=== PATIENT | female | born 1985 | race Caucasian/White ===

== ENCOUNTER 2017-03-30 00:49 | Emergency (ER) | payer MEDICAID ==
[2017-03-30 01:03] VITALS: BP 136/83
[2017-03-30] MEDS ORDERED: Ketorolac 60 MG/2 ML SDV IM ONE (01:32)
[2017-03-30] MEDS ORDERED: HYDROmorphone 1 MG/ML Syringe IM ONE (01:32)
--- NOTE | 2017-03-30 01:33 | EDM.PDOC ---
ED HPI GENERAL MEDICAL PROBLEM - General Chief Complaint: Lower Extremity Injury/Pain Stated Complaint: NERVE DANAGE IN LEGS IN PAIN Time Seen by Provider: 03/30/17 00:59 Source of Information: Reports: Patient History Limitations: Reports: No Limitations - History of Present Illness INITIAL COMMENTS - FREE TEXT/NARRATIVE: 31 y/o F with hx of self-reported neurological condition yet undiagnosed that causes severe intermittent leg pain, leg numbness, and weakness in her toes. She has pain from the belly button down through her legs. Pain is currently severe. It is burning in nature. It hurts to touch the skin. She also feels like she has weakness in her toes, which she gets with these episodes. States the pain has been constant for years but is intermittently worse causing her to need to come to the ED for medication, which is the only thing that helps. She takes gabapentin and has been taking this but it hasn't helped lately. She's had severe pain x 5 days, pain is preventing sleep. States she's been to [place] multiple times and has had many tests, including MRI of the back, what sounds like a nerve biopsy, what sounds like EMG, and others. All tests have been negative so far. Bilateral Lower Leg Pain Score (Numeric/FACES): 10 - Related Data Allergies Allergy/AdvReac Type Severity Reaction Status Date / Time iodine Allergy Hives Verified 07/15/16 16:45 Penicillins Allergy Swelling Verified 07/15/16 16:45 adhesive tape Allergy Blisters Uncoded 07/15/16 16:45 Bee sting Allergy Anaphylactic Uncoded 07/15/16 16:45 Shock Home Meds: Home Meds Albuterol [Proventil Neb Soln] 3 ml INH Q4HR PRN 05/06/14 [History] Fluticasone/Salmeterol [Advair 250-50] 2 puff INH DAILY 05/06/14 [History] Venlafaxine [Effexor] 150 mg PO DAILY 01/17/15 [History] Zolpidem Tartrate [Ambien] 10 mg PO BEDTIME PRN 06/28/16 [History] Gabapentin [Neurontin] 100 mg PO BID 03/30/17 [History] Past Medical History HEENT History: Reports: Impaired Vision Respiratory History: Reports: Asthma Gastrointestinal History: Reports: None Genitourinary History: Reports: None 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 Musculoskeletal History: Reports: Other (See Below) Neurological History: Reports: Head Trauma, Neuropathy, Peripheral, Other (See Below) Other Neuro History: Meneris disease Psychiatric History: Reports: Anxiety, Depression, PTSD Oncologic (Cancer) History: Reports: Cervix - Past Surgical History HEENT Surgical History: Reports: Oral Surgery Respiratory Surgical History: Reports: None GI Surgical History: Reports: Other (See Below) Other GI Surgeries/Procedures: superior mesenteric artery syndrome Female Surgical History: Reports: D&C Neurological Surgical History: Reports: None Social & Family History - Family History Family Medical History: Noncontributory - Tobacco Use Smoking Status *Q: Current Some Day Smoker Years of Tobacco use: 16 Packs/Tins Daily: 0.5 Used Tobacco, but Quit: No Second Hand Smoke Exposure: No - Caffeine Use Caffeine Use: Reports: Coffee, Soda, Tea - Alcohol Use Days Per Week of Alcohol Use: 0 - Recreational Drug Use Recreational Drug Use: No - Living Situation & Occupation Living situation: Reports: , with Significant Other, with Family Occupation: Employed Review of Systems - Review of Systems Review Of Systems: See Below Constitutional: Reports: No Symptoms Respiratory: Denies: Cough GI/Abdominal: Denies: Abdominal Pain Neurological: Reports: Paresthesia ED EXAM, GENERAL - Physical Exam Exam: See Below Exam Limited By: No Limitations General Appearance: Alert, WD/WN, No Apparent Distress Eye Exam: Bilateral Eye: PERRL Ears: Normal External Exam Nose: Normal Inspection Throat/Mouth: Normal Inspection, Normal Voice, No Airway Compromise Head: Atraumatic, Normocephalic Neck: Normal Inspection, Supple, Non-Tender, Full Range of Motion Respiratory/Chest: No Respiratory Distress, Lungs Clear, Normal Breath Sounds, Chest Non-Tender Cardiovascular: Regular Rate, Rhythm GI/Abdominal: Soft, Non-Tender, No Distention Extremities: Normal Inspection Neurological: Alert, Oriented, Normal Cognition, No Motor/Sensory Deficits Psychiatric: Normal Affect, Normal Mood Skin Exam: Warm, Dry, Intact, Normal Color, No Rash Course - Vital Signs Last Recorded V/S: Last Vital Signs Temp 36.7 C 03/30/17 01:00 Pulse 115 H 03/30/17 01:00 Resp 16 03/30/17 01:00 BP 136/83 03/30/17 01:00 Pulse Ox 100 03/30/17 01:00 - Orders/Labs/Meds Meds: Medications Discontinued Medications Generic Name Dose Route Start Last Admin Trade Name Arlyn PRN Reason Stop Dose Admin Hydromorphone HCl 1 mg 03/30/17 01:32 Dilaudid IM 03/30/17 01:33 ONETIME ONE Ketorolac Tromethamine 60 mg 03/30/17 01:32 Toradol IM 03/30/17 01:33 ONETIME ONE - Re-Assessments/Exams Free Text/Narrative Re-Assessment/Exam: 03/30/17 01:45 I have nothing to add to diagnostic workup tonight and have very low suspicion of an emergency medical condition. Will provide a dose of IV toradol and dilaudid, encouraged patient to f/u with PCP tomorrow for further care. Departure - Departure Time of Disposition: 01:36 Disposition: Home, Self-Care 01 Clinical Impression: Leg pain, bilateral - Discharge Information Referrals: Joya Dempsey WORSHIP LEADER [Primary Care Provider] - Forms: ED Department Discharge Additional Instructions: 1. Continue your usual medications for pain 2. Follow up with your primary care provider in the morning for further care 3. Return to the Emergency Department for any new or worsening concerning symptoms
[2017-03-30] MEDS ORDERED: LORazepam 2 MG/ML MDV IVPUSH ONE (02:09)
== END 2017-03-30 02:25 | disposition home or self-care (01) ==
LOC: JD.ED 00:49
DX: M79.604 Pain in right leg (principal); M79.605 Pain in left leg; J45.909 Unspecified asthma, uncomplicated; F41.9 Anxiety disorder, unspecified; F17.210 Nicotine dependence, cigarettes, uncomplicated; Z88.0 Allergy status to penicillin; Z91.030 Bee allergy status; Z79.899 Other long term (current) drug therapy
CPT/HCPCS: 96374; 96375; 99283; J1170; J1885; J2060

== ENCOUNTER 2018-01-01 00:05 | Emergency (ER) | payer BC ==
[2018-01-01 00:14] VITALS: BP 127/78
[2018-01-01] MEDS ORDERED: Sodium Chloride 0.9% 10 ML Syringe FLUSH PRN (00:26)
--- NOTE | 2018-01-01 00:52 | EDM.PDOC ---
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 This started about 15 minutes before arrival. She is 13 weeks gestation and . She just had intercourse. She had some clots that were passed. This has been an uneventful so far. She denies fever, chills, cough, chest pain, shortness of breath, nausea, vomiting or dysuria. Onset: Sudden Duration: Minutes: (15) Location: Reports: Pelvis Quality: Reports: Other (cramping) Severity: Moderate Improves with: Reports: None Worsens with: Reports: None Context: Reports: Activity (She just had intercourse) Associated Symptoms: Reports: No Other Symptoms Perineal Area Pain Score (Numeric/FACES): 6 - Related Data Allergies Allergy/AdvReac Type Severity Reaction Status Date / Time iodine Allergy Hives Verified 01/01/18 00:14 Penicillins Allergy Swelling Verified 01/01/18 00:14 adhesive tape Allergy Blisters Uncoded 01/01/18 00:14 Bee sting Allergy Anaphylactic Uncoded 01/01/18 00:14 Shock Home Meds: Home Meds Albuterol [Proventil Neb Soln] 3 ml INH Q4HR PRN 05/06/14 [History] Venlafaxine [Effexor] 150 mg PO DAILY 01/17/15 [History] Zolpidem Tartrate [Ambien] 10 mg PO BEDTIME PRN 06/28/16 [History] Past Medical History HEENT History: Reports: Impaired Vision Respiratory History: Reports: Asthma Gastrointestinal History: Reports: None Genitourinary History: Reports: None 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 Musculoskeletal History: Reports: Other (See Below) Neurological History: Reports: Head Trauma, Neuropathy, Peripheral, Other (See Below) Other Neuro History: Meneris disease Psychiatric History: Reports: Anxiety, Depression, PTSD Oncologic (Cancer) History: Reports: Cervix - Past Surgical History HEENT Surgical History: Reports: Oral Surgery Respiratory Surgical History: Reports: None GI Surgical History: Reports: Other (See Below) Other GI Surgeries/Procedures: superior mesenteric artery syndrome Female Surgical History: Reports: D&C Neurological Surgical History: Reports: None Social & Family History - Family History Family Medical History: Noncontributory - Tobacco Use Smoking Status *Q: Light Tobacco Smoker Years of Tobacco use: 16 Packs/Tins Daily: 0.1 - Caffeine Use Caffeine Use: Reports: None - Recreational Drug Use Recreational Drug Use: No - Living Situation & Occupation Living situation: Reports: , with Significant Other, with Family Occupation: Employed ED ROS GENERAL - Review of Systems Review Of Systems: See Below Constitutional: Reports: No Symptoms HEENT: Reports: No Symptoms Respiratory: Reports: No Symptoms Cardiovascular: Reports: No Symptoms Endocrine: Reports: No Symptoms GI/Abdominal: Reports: Abdominal Pain. Denies: Diarrhea, Nausea, Vomiting : Reports: Other (Pelvic pain and vaginal bleeding) Musculoskeletal: Reports: No Symptoms ED EXAM - Physical Exam Exam: See Below Exam Limited By: No Limitations General Appearance: Alert, No Apparent Distress Ears: Normal External Exam Nose: Normal Inspection Head: Atraumatic, Normocephalic Neck: Normal Inspection Respiratory/Chest: No Respiratory Distress, Lungs Clear, Normal Breath Sounds Cardiovascular: Regular Rate, Rhythm, No Edema, No Murmur GI/Abdominal Exam: Soft, No Organomegaly, No Mass, Tender (Mild tenderness to the lower abdomen) (Female) Exam: Other (Cervical os is closed there is mild blood in the vagianl vault.) Course - Vital Signs Last Recorded V/S: Last Vital Signs Temp 98.9 F 01/01/18 00:10 Pulse 119 H 01/01/18 00:10 Resp 18 01/01/18 00:10 BP 127/78 01/01/18 00:10 Pulse Ox 100 01/01/18 00:10 - Orders/Labs/Meds Orders: Active Orders 24 hr Category Date Time Status Pelvic Exam, Set Up [RC] ASDIRECTED Care 01/01/18 00:27 Active Peripheral IV Care [RC] . DIRECTED Care 01/01/18 00:26 Active OB 1st Tri Sgl 1st Gest [US] Stat Exams 01/01/18 00:27 Taken Sodium Chloride 0.9% [Saline Flush] Med 01/01/18 00:26 Active 10 ml FLUSH ASDIRECTED PRN Peripheral IV Insertion Adult [OM.PC] Routine Oth 01/01/18 00:26 Ordered Medication Orders Sodium Chloride (Saline Flush) 10 ml FLUSH ASDIRECTED PRN PRN Reason: Keep Vein Open Last Admin: 01/01/18 00:40 Dose: 10 ml Labs: Laboratory Tests 01/01/18 01/01/18 01/01/18 Range/Units 00:37 00:37 00:37 WBC 7.38 (3.98-10.04) K/mm3 RBC 3.65 L (3.98-5.22) M/mm3 Hgb 12.1 (11.2-15.7) gm/L Hct 35.1 (34.1-44.9) % MCV 96.2 H (79.4-94.8) fl MCH 33.2 H (25.6-32.2) pg MCHC 34.5 (32.2-35.5) g/dl RDW Std Deviation 39.9 (36.4-46.3) fL Plt Count 213 (182-369) K/mm3 MPV 9.3 L (9.4-12.3) fl Neut % (Auto) 64.8 (34.0-71.1) % Lymph % (Auto) 24.5 (19.3-51.7) % [place] % (Auto) 6.5 (4.7-12.5) % Eos % (Auto) 3.8 (0.7-5.8) Baso % (Auto) 0.1 (0.1-1.2) % Neut # (Auto) 4.78 (1.56-6.13) K/mm3 Lymph # (Auto) 1.81 (1.18-3.74) K/mm3 [place] # (Auto) 0.48 H (0.24-0.36) K/mm3 Eos # (Auto) 0.28 (0.04-0.36) K/mm3 Baso # (Auto) 0.01 (0.01-0.08) K/mm3 HCG, Quant 17815.0 mIU/mL Blood Type A POSITIVE Meds: Medications Generic Name Dose Route Start Last Admin Trade Name Freq PRN Reason Stop Dose Admin Sodium Chloride 10 ml 01/01/18 00:26 01/01/18 00:40 Saline Flush FLUSH 10 ml ASDIRECTED PRN Administration Keep Vein Open - Re-Assessments/Exams Free Text/Narrative Re-Assessment/Exam: 01/01/18 00:51 I ordered an IV saline lock, labs and an US. 01/01/18 02:28 Her CBC looks good. Her HCG is elevated. Her blood type is A positive. Her US shows a single viable intrauterine with a sonographic gestational age of 13 weeks and 0 days. The sonographic EDC is 07/09/2018. 2.1cm anterior subchorionic hemorrhage. FHTs are 168. I will discharge her home with pelvic rest and no heavy lifting. Departure - Departure Time of Disposition: 02:35 Disposition: Home, Self-Care 01 Condition: Good Clinical Impression: Qualifiers: Weeks of gestation: 13 weeks Qualified Code(s): Z3A.13 - 13 weeks gestation of Subchorionic hemorrhage in first trimester Qualifiers: Fetus number: single or unspecified fetus Qualified Code(s): O41.8X10 - Other specified disorders of amniotic fluid and membranes, first trimester, not applicable or unspecified; O46.8X1 - Other antepartum hemorrhage, first trimester - Discharge Information Referrals: Zaira Ruvalcaba MD [Primary Care Provider] - 1 Week Forms: ED Department Discharge Additional Instructions: No heavy lifting of greater then 8 pounds which is about a gallon jug of milk. No intercourse until you are cleared by Dr Ruvalcaba. Call her office tomorrow and let them know what is going on. Please return if you are worse. - My Orders Last 24 Hours: My Active Orders 01/01/18 00:26 Peripheral IV Care [RC] . DIRECTED Sodium Chloride 0.9% [Saline Flush] 10 ml FLUSH ASDIRECTED PRN Peripheral IV Insertion Adult [OM.PC] Routine 01/01/18 00:27 Pelvic Exam, Set Up [RC] ASDIRECTED OB 1st Tri Sgl 1st Gest [US] Stat - Assessment/Plan Last 24 Hours: My Active Orders 01/01/18 00:26 Peripheral IV Care [RC] . DIRECTED Sodium Chloride 0.9% [Saline Flush] 10 ml FLUSH ASDIRECTED PRN Peripheral IV Insertion Adult [OM.PC] Routine 01/01/18 00:27 Pelvic Exam, Set Up [RC] ASDIRECTED OB 1st Tri Sgl 1st Gest [US] Stat
--- NOTE | 2018-01-01 08:54 | US ---
First trimester obstetrical ultrasound: Multiple real-time images were obtained transabdominally. Comparison: No prior study for current . Dates: LMP: LMP given as 09/30/17, DONALD 07/07/18, gestational age 13 weeks 2 days Current ultrasound: DONALD 07/09/18, gestational age 13 weeks 0 days presentation: Cephalic Placenta: Right lateral with no findings of placenta previa, subchorionic hemorrhage is seen measuring about 2.1 cm and is located anteriorly. Amniotic fluid: Within normal limits Maternal ovaries appear within normal limits. Measurements: BPD: 2.02 cm - 13 weeks 2 days Head circumference: 7.48 cm - 13 weeks 1 day Abdominal circumference: 6.23 cm - 13 weeks 0 days Femur length: 0.89 cm -12 weeks 5 days Estimated weight: 64 g (0 lbs. 2 oz.), estimated weight at the 8.15 percentile for age by LMP Heart rate: 168 bpm Cervical length: 2.6 cm Impression: 1. Single intrauterine fetus currently cephalic in presentation. Dates as noted above. 2. Subchorionic hemorrhage measuring approximately 2.1 cm. 3. No other complicating process is seen. Diagnostic code #3 I agree with preliminary report from [facility], finalized at 01/01/18, 3:24 AM Central Time
== END 2018-01-01 02:45 | disposition home or self-care (01) ==
LOC: JD.ED 00:05
DX: O46.8X1 Other antepartum hemorrhage, first trimester (principal); O41.8X10 Other specified disorders of amniotic fluid and membranes, first trimester, not applicable or unspecified; O99.341 Other mental disorders complicating pregnancy, first trimester; F32.9 Major depressive disorder, single episode, unspecified; O99.331 Smoking (tobacco) complicating pregnancy, first trimester; F17.210 Nicotine dependence, cigarettes, uncomplicated; Z88.0 Allergy status to penicillin; Z91.030 Bee allergy status; Z91.048 Other nonmedicinal substance allergy status; Z79.899 Other long term (current) drug therapy; Z3A.13 13 weeks gestation of pregnancy
CPT/HCPCS: 36415; 76801; 84702; 85025; 86900; 86901; 99284; J7050

== ENCOUNTER 2019-05-07 16:40 | Emergency (ER) | payer BC ==
[2019-05-07] MEDS ORDERED: diphenhydrAMINE 50 MG/ML SDV IVPUSH ONE (16:45)
[2019-05-07] MEDS ORDERED: methylPREDNISolone Sodium Succinate 125 MG/2 ML SDV IVPUSH ONE (16:45)
[2019-05-07] MEDS ORDERED: Sodium Chloride 0.9% 1,000 ML IV ONE (16:45)
[2019-05-07] MEDS ORDERED: Sodium Chloride 0.9% 10 ML Syringe FLUSH PRN (16:45)
[2019-05-07] MEDS ORDERED: Famotidine 20 MG/2 ML SDV IVPUSH ONE (16:45)
[2019-05-07] MEDS ORDERED: EPINEPHrine 1 MG/1 ML Amp SUBCUT ONE (16:48)
[2019-05-07 16:53] VITALS: BP 145/109; PULSE 92
[2019-05-07] MEDS: EPINEPHrine 1 MG/ML SDV IM ONE ×2 (16:59→18:24)
--- NOTE | 2019-05-07 17:25 | EDM.PDOC ---
ED HPI GENERAL MEDICAL PROBLEM - General Chief Complaint: Bite:Animal, Insect Stated Complaint: BEE STING Time Seen by Provider: 05/07/19 16:44 Source of Information: Reports: Patient, RN Notes Reviewed History Limitations: Reports: No Limitations - History of Present Illness INITIAL COMMENTS - FREE TEXT/NARRATIVE: Patient is a 33-year-old female who presents to the ED for evaluation of a bee sting. Patient notes she is severely allergic to bees, and was stung on the right outer palm area shortly prior to arrival, she states she did not use her EpiPen at this time because she had to drive herself to the ER and had 4 small children with her. Patient believes that her throat is closing, and feels as if it is hard to breathe, she is coughing in the room trying to "keep her airway open". She states that she did hear some wheezing. Patient is visibly shaky and states that she is scared. 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 OPERATOR: Reports: Other (see below) Other 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 OPERATOR: none Right Head Pain Score (Numeric/FACES): 10 - Related Data Allergies Allergy/AdvReac Type Severity Reaction Status Date / Time iodine Allergy Hives Verified 04/25/19 09:21 Penicillins Allergy Swelling Verified 04/25/19 09:21 adhesive tape Allergy Blisters Uncoded 01/01/18 00:14 Bee sting Allergy Anaphylactic Uncoded 01/01/18 00:14 Shock Home Meds: Home Meds Acetaminophen [Tylenol] 325 mg PO BEDTIME 06/09/18 [History] Fluticasone/Salmeterol [Advair 250-50 Diskus] 1 each IH TID 06/09/18 [History] Pnv No.122/Iron/Folic Acid [ Multi Tablet] 1 each PO DAILY 06/09/18 [ History] Prazosin [Minpress] 1 mg PO BEDTIME 06/09/18 [History] QUEtiapine [SEROquel] 50 mg PO BEDTIME 06/09/18 [History] Sertraline [Zoloft] 200 mg PO DAILY 06/09/18 [History] Zolpidem Tartrate [Ambien] 10 mg PO BEDTIME 06/09/18 [History] diphenhydrAMINE [Benadryl] 25 mg PO BEDTIME 06/09/18 [History] Ondansetron [Zofran] 4 mg BUCCAL Q6H PRN #5 tab 04/25/19 [Rx] Tamsulosin HCl [Flomax] 0.4 mg PO DAILY #4 cap.er.24h 04/25/19 [Rx] oxyCODONE HCl/Acetaminophen [Percocet 5-325 mg Tablet] 1 - 2 each PO Q4H PRN # 12 tablet 04/25/19 [Rx] Past Medical History HEENT History: Reports: Hard of Hearing, Impaired Vision, Other (See Below) Other HEENT History: Meniere's disease Respiratory History: Reports: Asthma Gastrointestinal History: Reports: None Genitourinary History: Reports: Renal Calculus 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: , 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 Other 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 History: h/o demise Neurological History: Reports: Head Trauma, Migraines, Neuropathy, Peripheral, Vertigo Other Neuro History: Meneris disease Psychiatric History: Reports: Anxiety, Depression, PTSD Oncologic (Cancer) History: Reports: Cervix - Past Surgical History HEENT Surgical History: Reports: Oral Surgery GI Surgical History: Reports: Other (See Below) Other GI Surgeries/Procedures: superior mesenteric artery syndrome, lap jejunostomy Female Surgical History: Reports: Cystectomy, D&C Social & Family History - Family History Family Medical History: Noncontributory - Tobacco Use Smoking Status *Q: Former Smoker Used Tobacco, but Quit: Yes Month/Year Tobacco Last Used: 6 month - Caffeine Use Caffeine Use: Reports: Soda - Recreational Drug Use Recreational Drug Use: No - Living Situation & Occupation Living situation: Reports: , with Significant Other, with Family Occupation: Employed ED ROS ALLERGIC REACTION - Review of Systems Review Of Systems: See Below Constitutional: Denies: Fever, Chills HEENT: Reports: No Symptoms, Throat Swelling (feelings of) Respiratory: Reports: Shortness of Breath, Cough. Denies: Wheezing Cardiovascular: Denies: Chest Pain Endocrine: Reports: No Symptoms GI/Abdominal: Denies: Diarrhea, Nausea, Vomiting : Reports: No Symptoms Musculoskeletal: Reports: No Symptoms Skin: Reports: No Symptoms Neurological: Reports: No Symptoms Psychiatric: Reports: No Symptoms Hematologic/Lymphatic: Reports: No Symptoms Immunologic: Reports: No Symptoms ED EXAM GENERAL NO PERIP PULSE - Physical Exam Exam: See Below Exam Limited By: No Limitations General Appearance: Alert, WD/WN, Mild Distress (Patient appears to be in mild amount of distress, is breathing heavy.) Eye Exam: Bilateral Eye: EOMI, PERRL Throat/Mouth: Normal Inspection, Normal Lips, Normal Teeth, Normal Gums, Normal Oropharynx, Normal Voice, No Airway Compromise Head: Atraumatic, Normocephalic Respiratory/Chest: No Respiratory Distress, Lungs Clear, No Accessory Muscle Use , Chest Non-Tender, Decreased Breath Sounds (diffuse bilaterally) Cardiovascular: Normal Peripheral Pulses, Regular Rate, Rhythm, No Murmur GI/Abdominal: Normal Bowel Sounds, Soft, Non-Tender, No Distention, No Mass Extremities: Normal Inspection, Normal Capillary Refill Neurological: Alert, Oriented, Normal Cognition, No Motor/Sensory Deficits Psychiatric: Normal Affect, Normal Mood Skin Exam: Warm, Dry, Intact, Normal Color, No Rash Course - Vital Signs Last Recorded V/S: Last Vital Signs Temp 97.5 F 05/07/19 16:51 Pulse 92 05/07/19 16:51 Resp 24 H 05/07/19 16:51 BP 145/109 H 05/07/19 16:51 Pulse Ox 99 05/07/19 16:51 - Orders/Labs/Meds Orders: Active Orders 24 hr Category Date Time Status Peripheral IV Care [RC] . DIRECTED Care 05/07/19 16:45 Ordered Sodium Chloride 0.9% [Normal Saline] 1,000 ml Med 05/07/19 16:45 Ordered IV ONETIME Sodium Chloride 0.9% [Saline Flush] Med 05/07/19 16:45 Ordered 10 ml FLUSH ASDIRECTED PRN Peripheral IV Insertion Adult [OM.PC] Stat Oth 05/07/19 16:45 Ordered Medication Orders Sodium Chloride (Normal Saline) 1,000 mls @ 125 mls/hr IV ONETIME ONE Stop: 05/08/19 00:44 Last Admin: 05/07/19 17:01 Dose: 125 mls/hr Sodium Chloride (Saline Flush) 10 ml FLUSH ASDIRECTED PRN PRN Reason: Keep Vein Open Last Admin: 05/07/19 17:00 Dose: 10 ml Meds: Medications Generic Name Dose Route Start Last Admin Trade Name Freq PRN Reason Stop Dose Admin Sodium Chloride 1,000 mls @ 125 mls/hr 05/07/19 16:45 05/07/19 17:01 Normal Saline IV 05/08/19 00:44 125 mls/hr ONETIME ONE Administration Sodium Chloride 10 ml 05/07/19 16:45 05/07/19 17:00 Saline Flush FLUSH 10 ml ASDIRECTED PRN Administration Keep Vein Open Discontinued Medications Generic Name Dose Route Start Last Admin Trade Name Parvizq PRN Reason Stop Dose Admin Diphenhydramine HCl 50 mg 05/07/19 16:45 05/07/19 17:00 Benadryl IVPUSH 05/07/19 16:46 50 mg ONETIME ONE Administration Epinephrine HCl 0.3 mg 05/07/19 16:41 Adrenalin IM 05/07/19 16:42 ONETIME ONE Epinephrine HCl 0.3 mg 05/07/19 16:48 05/07/19 16:48 Adrenalin SUBCUT 05/07/19 16:49 0.3 mg ONETIME ONE Administration Famotidine 20 mg 05/07/19 16:45 05/07/19 17:00 Pepcid IVPUSH 05/07/19 16:46 20 mg ONETIME ONE Administration Ketorolac Tromethamine 30 mg 05/07/19 17:31 Toradol IVPUSH 05/07/19 17:32 ONETIME ONE Methylprednisolone Sodium Succinate 125 mg 05/07/19 16:45 05/07/19 16:59 Solu-Medrol IVPUSH 05/07/19 16:46 125 mg ONETIME ONE Administration - Re-Assessments/Exams Free Text/Narrative Re-Assessment/Exam: 05/07/19 16:45 Patient presents to the ED for the evaluation of an allergic reaction to bee sting. Patient was visibly having some struggle to breathe upon initial exam, 0.3 mg epinephrine was given initially, and 125 mg Solumedrol, 50 mg Benadryl, and 20 mg famotidine were given for subsequent management. IV fluids to be started at 125 per hour. Departure - Departure Time of Disposition: 18:21 Disposition: Home, Self-Care 01 Condition: Fair Clinical Impression: Allergy to bee sting - Discharge Information *PRESCRIPTION DRUG MONITORING PROGRAM REVIEWED*: No *COPY OF PRESCRIPTION DRUG MONITORING REPORT IN PATIENT KRISTY: No Instructions: Anaphylactic Reaction, Adult, [id number], Bee, Wasp, or Hornet Sting, Adult Referrals: PCP,Unknown [Ordering Only Provider] - Forms: ED Department Discharge Additional Instructions: You were evaluated in the ED today for your bee sting. You were given a combination of IV medications, and these seem to help relieve your symptoms. You may take 25 mg of Benadryl 4 times daily and 20 mg Pepcid (famotidine) for the next 72 hours if symptoms should persist. You may take these on an as- needed basis after the first 72 hours are done. Expect some pain and swelling at the site, you may take ibuprofen or Tylenol every 6 hours as needed for further pain relief. Please return to the ED if your symptoms should change or worsen. - My Orders Last 24 Hours: My Active Orders 05/07/19 16:45 Peripheral IV Care [RC] . DIRECTED Sodium Chloride 0.9% [Normal Saline] 1,000 ml IV ONETIME Sodium Chloride 0.9% [Saline Flush] 10 ml FLUSH ASDIRECTED PRN Peripheral IV Insertion Adult [OM.PC] Stat - Assessment/Plan Last 24 Hours: My Active Orders 05/07/19 16:45 Peripheral IV Care [RC] . DIRECTED Sodium Chloride 0.9% [Normal Saline] 1,000 ml IV ONETIME Sodium Chloride 0.9% [Saline Flush] 10 ml FLUSH ASDIRECTED PRN Peripheral IV Insertion Adult [OM.PC] Stat
[2019-05-07] MEDS ORDERED: Ketorolac 30 MG/ML SDV IVPUSH ONE (17:31)
== END 2019-05-07 18:45 | disposition home or self-care (01) ==
LOC: JD.ED 16:40
DX: T63.441A Toxic effect of venom of bees, accidental (unintentional), initial encounter (principal); J45.909 Unspecified asthma, uncomplicated; F41.9 Anxiety disorder, unspecified; F32.9 Major depressive disorder, single episode, unspecified; Z87.891 Personal history of nicotine dependence; Z88.0 Allergy status to penicillin; Z91.030 Bee allergy status; Z88.8 Allergy status to other drugs, medicaments and biological substances; Z79.899 Other long term (current) drug therapy
CPT/HCPCS: 96361; 96372; 96374; 96375; 99282; J0171; J1200; J1885; J2930; J3490; J7040

== ENCOUNTER 2020-04-24 06:33 | Day surgery (SDC) | payer BC, MEDICAID ==
--- NOTE | 2020-04-23 10:23 | PCM.PREANE ---
Preanesthetic Assessment - Procedure Proposed Procedure: Total Vaginal Hysterectomy - Anesthesia/Transfusion/Family Hx Anesthesia History: Prior Anesthesia Without Reaction Family History of Anesthesia Reaction: No Transfusion History: No Prior Transfusion(s) Intubation History: Unknown - Review of Systems General: No Symptoms Pulmonary: No Symptoms (History of Asthma: inhaler- last used one week ago. Smoker: less than 1ppd times 15 years(averages 3 cigarettes/day)) Cardiovascular: Dyspnea on Exertion (exercise induced asthmatic symptoms) Gastrointestinal: No Symptoms Neurological: No Symptoms (History of vertigo/meniere's disease.), Headache (history of migraines) Other: Reports: Easy Bruising, Depression (History of PTSD.), Anxiety - Physical Assessment NPO Status Date: 04/23/20 NPO Status Time: 22:00 Vital Signs: HR:96 Sat:97% Temp:97.3 B/P:115/72 Resp:16 Height: 1.78 m Weight: 71 kg ASA Class: 2 Mental Status: Alert & Oriented x3 Airway Class: Mallampati = 2 Dentition: Reports: Normal Dentition (nasal septal piercing and right cheek dermal noted.), Dentures, Caries Thyro-Mental Finger Breadths: 3 Mouth Opening Finger Breadths: 3 ROM/Head Extension: Full Lungs: Clear to Auscultation, Normal Respiratory Effort Cardiovascular: Regular Rate, Regular Rhythm, No Murmurs - Lab Values: Laboratory Last Values COVID-19 PCR Not detected (NOT DETECT) 04/20/20 10:30 Labs reviewed and noted and within acceptable ranges to proceed with scheduled procedure. - Allergies Allergies/Adverse Reactions: Allergies Allergy/AdvReac Type Severity Reaction Status Date / Time iodine Allergy Hives Verified 04/23/20 15:50 Penicillins Allergy Swelling Verified 04/23/20 15:50 adhesive tape Allergy Blisters Uncoded 04/23/20 15:50 Bee sting Allergy Anaphylactic Uncoded 04/23/20 15:50 Shock - Anesthesia Plan Pre-Op Medication Ordered: None, Other (scopalamine patch in preop placed.) - Acknowledgements Anesthesia Type Planned: General Anesthesia Pt an Appropriate Candidate for the Planned Anesthesia: Yes Alternatives and Risks of Anesthesia Discussed w Pt/Guardian: Yes Pt/Guardian Understands and Agrees with Anesthesia Plan: Yes PreAnesthesia Questionnaire HEENT History: Reports: Hard of Hearing, Impaired Vision, Other (See Below) Other HEENT History: Meniere's disease Respiratory History: Reports: Asthma Gastrointestinal History: Reports: None Genitourinary History: Reports: Renal Calculus 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: , 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 Other OB/BYN History: h/o demise Neurological History: Reports: Head Trauma, Migraines, Neuropathy, Peripheral, Vertigo Other Neuro History: Meneris disease Psychiatric History: Reports: Anxiety, Depression, PTSD Oncologic (Cancer) History: Reports: Cervix - Past Surgical History HEENT Surgical History: Reports: Oral Surgery GI Surgical History: Reports: Other (See Below) Other GI Surgeries/Procedures: superior mesenteric artery syndrome, lap jejunostomy Female Surgical History: Reports: Cystectomy, D&C - HOME MEDS Home Medications: Home Meds Prazosin [Minpress] 1 mg PO BEDTIME 06/09/18 [History] No122/Iron/Folic Acid [ Multi Tablet] 1 each PO DAILY 06/09/18 [History] Sertraline [Zoloft] 100 mg PO DAILY 06/09/18 [History] Albuterol Sulfate [Albuterol Sulfate Hfa] 1 - 2 puff INH Q4H PRN 04/23/20 [History] QUEtiapine Fumarate [Seroquel] 300 mg PO DAILY 04/23/20 [History] buPROPion [Wellbutrin] 100 mg PO DAILY 04/23/20 [History] - CURRENT (IN HOUSE) MEDS Current Meds: Current Medications Lactated Ringer's (Ringers, Lactated) 1,000 mls @ 125 mls/hr IV ASDIRECTED TERRENCE Stop: 04/24/20 23:00 Lidocaine/Sodium Bicarbonate (Buffered Lidocaine 1% In Ns 8.4%) 0.25 ml IDERM ONETIME PRN PRN Reason: Prior to IV Start Stop: 04/24/20 18:00 Scopolamine (Transderm-Scop) 1.5 mg TRDERM ONETIME PRN PRN Reason: PONV: history of vertigo. Stop: 04/24/20 23:00 Sodium Chloride (Saline Flush) 10 ml FLUSH ASDIRECTED PRN PRN Reason: Keep Vein Open Stop: 04/24/20 18:00
[~2020-04-24 06:33] MED LIST: Clindamycin Phosphate 900 MG in Sodium Chloride 0.9% 100 ML IV SCH; Dexamethasone 4 MG/ML 5 ML MDV ONE; HYDROmorphone 0.5 MG/0.5 ML Syringe ONE; Ketorolac 30 MG/ML SDV ONE; Lactated Ringers 1,000 ML IV SCH; Lactated Ringers 1,000 ML ONE; Lidocaine 1% 6 ML ONE; Lidocaine 1%/Sod Bicarbonate in NS 8.4% 1 ML Syringe IDERM PRN; Midazolam 1 MG/ML 2 ML SDV ONE; Ondansetron 4 MG/2 ML SDV ONE; Propofol 200 MG/20 ML SDV ONE; Rocuronium 50 MG/5 ML Vial ONE; Scopolamine 1.5 MG Transdermal Patch TRDERM PRN; Sodium Chloride 0.9% 10 ML Syringe FLUSH PRN; fentaNYL 250 MCG/5 ML SDV ONE
[2020-04-24] MEDS ORDERED: Lidocaine 1% with EPINEPHrine 1:100,000 20 ML MDV ONE (06:38)
[2020-04-24] MEDS ORDERED: Sodium Chloride 0.9% 50 ML SDV ONE (06:39)
[2020-04-24] MEDS ORDERED: Gentamicin 360 MG in Sodium Chloride 0.9% 100 ML IV ONE (07:00)
[2020-04-24] MEDS ORDERED: Clindamycin Phosphate in D5W 900 MG in Premix Bag 1 BAG IV ONE ×2 (07:15)
[2020-04-24] MEDS ORDERED: diphenhydrAMINE 50 MG/ML SDV IVPUSH PRN (07:47)
[2020-04-24] MEDS ORDERED: Ondansetron 4 MG/2 ML SDV IVPUSH PRN (07:47)
[2020-04-24] MEDS ORDERED: ePHEDrine 50 MG/ML SDV IVPUSH PRN (07:47)
[2020-04-24] MEDS ORDERED: Midazolam 1 MG/ML 2 ML SDV IVPUSH PRN (07:47)
[2020-04-24] MEDS ORDERED: Albuterol 0.083% 2.5 MG/3 ML Neb Soln NEB PRN (07:48)
[2020-04-24] MEDS ORDERED: HYDROmorphone 0.5 MG/0.5 ML Syringe IVPUSH PRN (07:48)
[2020-04-24] MEDS ORDERED: Phenylephrine 1 MG in Sodium Chloride 0.9% 10 ML IV SCH (08:00)
[2020-04-24] MEDS ORDERED: Acetaminophen/oxyCODONE 325-5 MG Tab PO PRN (08:16)
--- NOTE | 2020-04-24 08:32 | PCM.POSTAN ---
POST ANESTHESIA ASSESSMENT - MENTAL STATUS Mental Status: Alert - VITAL SIGNS Vital Signs: Last Vital Signs Temp 97.8 04/24/20820 Pulse 115 04/24/20820 Resp 12 04/24/20820 BP 120/77 04/24/20820 Pulse Ox 97% 04/24/20820 - RESPIRATORY Respiratory Status: Respiratory Rate WNL, Airway Patent, O2 Saturation Stable - CARDIOVASCULAR CV Status: Pulse Rate WNL, Blood Pressure Stable - GASTROINTESTINAL GI Status: No Symptoms - POST OP HYDRATION Hydration Status: Adequate & Stable
[2020-04-24] MEDS: fentaNYL 100 MCG/2 ML SDV IVPUSH PRN ×2 (08:50→09:06)
--- NOTE | 2020-04-24 09:31 | PCM48HPAN ---
Post Anesthesia Note - EVALUATION WITHIN 48HRS OF ANESTHETIC Vital Signs in Normal Range: Yes Patient Participated in Evaluation: Yes Respiratory Function Stable: Yes Airway Patent: Yes Cardiovascular Function Stable: Yes Hydration Status Stable: Yes Pain Control Satisfactory: Yes Nausea and Vomiting Control Satisfactory: Yes Mental Status Recovered: Yes Vital Signs: Last Vital Signs Temp 37.2 C 04/24/20 09:20 Pulse 75 04/24/20 09:20 Resp 8 L 04/24/20 09:20 BP 97/60 04/24/20 09:20 Pulse Ox 98 04/24/20 09:20
--- NOTE | 2020-04-24 10:26 | PCM.OPNOTE ---
- General Post-Op/Procedure Note Date of Surgery/Procedure: 04/24/20 Operative Procedure(s): Total vaginal hysterectomy Findings: Uterus and cervix were normal. Fallopian tubes were surgically absent. Bilateral ovaries were normal and functional in appearance. Pre Op Diagnosis: 1. Menorrhagia. 2. Dysmenorrhea Post-Op Diagnosis: Same Anesthesia Technique: General ET Tube Other Anesthesia Type: Local anesthesia with lidocaine 1% with [id number] cc total Primary Surgeon: Terrence Beltrán Secondary Surgeon: Wesley Funk Anesthesia Provider: Jennifer Wise Processes Chemical Design Engineer: Jasmyne Hancock Reason Processes Chemical Design Engineer Was Necessary: Retraction, assistance, patient safety, quality of care. Pathology: Uterus with cervix attached. Fluid Replacement, Intraop: 800 EBL in mLs: 50 Complications: None Condition: Good Free Text/Narrative:: Surgery duration: 28 minutes Procedure: The patient was placed in supine position on the operating table. General endotracheal anesthesia was accomplished. After positioning, and adequate prep and drape, the procedure was then performed. Patient was given prophylactic antibiotics with clindamycin and gentamicin per pharmacy dosage recommendations. Sterile speculum was placed in the vagina and cervix was visualized. Cervix was injected with lidocaine quarter percent with epinephrine- 20 mL used. A full circumference incision was made in the cervical epithelium. The bladder was pushed well back off cervix. Posterior cul-de-sac was then entered sharply without problems. Left uterosacral was crossclamped with a Enseal vessel closure system. The left uterosacral and then the right uterosacral ligament pedicles were developed using the Enseal system. The anterior cul-de-sac was then entered without problems and the uterine vasculature, cardinal ligament and broad ligament then developed using Enseal vessel closure system. The uterus was inverted at this time and upper broad ligament were crossclamped with Dominique clamps. Specimen was totally removed. Both these pedicles were then secured with Enseal vessel closure system Left and right fallopian tubes were surgically absent. The patient was found to be hemostatically intact at this time. Vaginal cuff was sutured for hemostatic reasons with a running locked suture of 0 Monocryl from the 2 o'clock position to the 10 o'clock position posteriorly. Vaginal cuff was then closed from right to left side with a running locked suture of 0 Monocryl. Patient was returned to supine position and awakened from general endotracheal anesthesia. She tolerated the procedure and left the operating room in satisfactory condition.
[2020-04-24 11:43] VITALS: BP 105/67; PULSE 98
[2020-04-24] MEDS ORDERED: Ketorolac 30 MG/ML SDV IVPUSH SCH (13:00)
[2020-04-24] MEDS ORDERED: Ibuprofen 600 MG Tab PO PRN (19:00)
== END 2020-04-24 11:57 | disposition home or self-care (01) ==
LOC: JD.SDS 06:33
PROVIDERS: ATTEND Obstetrics & Gynecology
DX: N87.9 Dysplasia of cervix uteri, unspecified (principal); J45.909 Unspecified asthma, uncomplicated; F41.9 Anxiety disorder, unspecified; F32.9 Major depressive disorder, single episode, unspecified; F43.10 Post-traumatic stress disorder, unspecified; F17.210 Nicotine dependence, cigarettes, uncomplicated; Z79.899 Other long term (current) drug therapy; Z88.0 Allergy status to penicillin; Z91.030 Bee allergy status; Z20.828 Contact with and (suspected) exposure to other viral communicable diseases; Z91.041 Radiographic dye allergy status; Z01.812 Encounter for preprocedural laboratory examination; Z90.79 Acquired absence of other genital organ(s)
CPT/HCPCS: 36415; 58260; 81003; 81025; 85025; 86850; 86900; 86901; 87635; A9270; J1100; J1170; J1200; J1580; J1885; J2001; J2250; J2405; J2704; J2710; J3010; J3490; J7050; J7120; 00944; J2370; U0002

== ENCOUNTER 2020-04-26 17:03 | Observation (INO) | payer BC, MEDICAID ==
--- NOTE | 2020-04-26 17:37 | PCM.PREANE ---
Preanesthetic Assessment - Anesthesia/Transfusion/Family Hx Anesthesia History: Prior Anesthesia Without Reaction Family History of Anesthesia Reaction: No Transfusion History: No Prior Transfusion(s) Intubation History: Unknown - Review of Systems Pulmonary: No Symptoms (Asthma/smoker less than 1ppd times 15 years.) Cardiovascular: Dyspnea on Exertion (exercised induced) Gastrointestinal: No Symptoms, Abdominal Pain (8/10 abdominal pain) Neurological: Headache (History of migraines) Other: Reports: Easy Bruising, Depression, Anxiety (History of PTSD) - Physical Assessment NPO Status Date: 04/26/20 NPO Status Time: 09:30 Vital Signs: HR:94 Sat:96% Temp:98.6 Resp:14 B/P:115/76 Height: 1.78 m Weight: 71 kg ASA Class: 2E Mental Status: Alert & Oriented x3 Airway Class: Mallampati = 2 Dentition: Reports: Normal Dentition (septal piercing noted, right cheek dermal in place.), Caries Thyro-Mental Finger Breadths: 3 Mouth Opening Finger Breadths: 3 ROM/Head Extension: Full Lungs: Clear to Auscultation, Normal Respiratory Effort Cardiovascular: Regular Rate, Regular Rhythm, No Murmurs - Lab Values: All labs reviewed and noted and within acceptable ranges to proceed with procedure. - Allergies Allergies/Adverse Reactions: Allergies Allergy/AdvReac Type Severity Reaction Status Date / Time iodine Allergy Hives Verified 04/26/20 17:28 Penicillins Allergy Swelling Verified 04/26/20 17:28 adhesive tape Allergy Blisters Uncoded 04/26/20 17:28 Bee sting Allergy Anaphylactic Uncoded 04/26/20 17:28 Shock - Anesthesia Plan Pre-Op Medication Ordered: None - Acknowledgements Anesthesia Type Planned: General Anesthesia Pt an Appropriate Candidate for the Planned Anesthesia: Yes Alternatives and Risks of Anesthesia Discussed w Pt/Guardian: Yes Pt/Guardian Understands and Agrees with Anesthesia Plan: Yes PreAnesthesia Questionnaire HEENT History: Reports: Hard of Hearing, Impaired Vision, Other (See Below) Other HEENT History: Meniere's disease Cardiovascular History: Reports: None Respiratory History: Reports: Asthma Gastrointestinal History: Reports: None Genitourinary History: Reports: Renal Calculus 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: , 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 Other OB/BYN History: h/o demise Musculoskeletal History: Reports: None Neurological History: Reports: Head Trauma, Migraines, Neuropathy, Peripheral, Vertigo Other Neuro History: Meneris disease Psychiatric History: Reports: Anxiety, Depression, PTSD Endocrine/Metabolic History: Reports: None Hematologic History: Reports: None Immunologic History: Reports: None Oncologic (Cancer) History: Reports: Cervix Dermatologic History: Reports: None - Infectious Disease History Infectious Disease History: Reports: None - Past Surgical History HEENT Surgical History: Reports: Oral Surgery GI Surgical History: Reports: Other (See Below) Other GI Surgeries/Procedures: superior mesenteric artery syndrome, lap jejunostomy Female Surgical History: Reports: Cystectomy, D&C - HOME MEDS Home Medications: Home Meds Prazosin [Minpress] 1 mg PO BEDTIME 06/09/18 [History] No122/Iron/Folic Acid [ Multi Tablet] 1 tab PO DAILY 06/09/18 [History] Sertraline [Zoloft] 100 mg PO BEDTIME 06/09/18 [History] Albuterol Sulfate [Albuterol Sulfate Hfa] 1 - 2 puff INH Q4H PRN 04/23/20 [History] QUEtiapine Fumarate [Seroquel] 300 mg PO BEDTIME 04/23/20 [History] buPROPion [Wellbutrin] 100 mg PO DAILY 04/23/20 [History] Acetaminophen/oxyCODONE [Percocet 325-5 MG] 2 tab PO Q4H PRN tablet 04/24/20 [Rx] Ibuprofen [Motrin] 600 mg PO Q4H PRN tablet 04/24/20 [Rx]
[2020-04-26] MEDS ORDERED: Bupivacaine 0.5% 30 ML SDV ONE (17:42)
[2020-04-26] MEDS ORDERED: Clindamycin Phosphate 900 MG in Sodium Chloride 0.9% 100 ML IV ONE (17:46)
[2020-04-26] MEDS ORDERED: Gentamicin 360 MG in Sodium Chloride 0.9% 100 ML IV ONE (17:46)
[2020-04-26] MEDS ORDERED: Ondansetron 4 MG/2 ML SDV ONE (18:10)
[2020-04-26] MEDS ORDERED: HYDROmorphone 0.5 MG/0.5 ML Syringe ONE ×2 (18:10→19:15)
[2020-04-26] MEDS ORDERED: Propofol 200 MG/20 ML SDV ONE (18:10)
[2020-04-26] MEDS ORDERED: Lactated Ringers 2,000 ML ONE (18:10)
[2020-04-26] MEDS ORDERED: Rocuronium 50 MG/5 ML Vial ONE (18:10)
[2020-04-26] MEDS ORDERED: Ketorolac 30 MG/ML SDV ONE (18:10)
[2020-04-26] MEDS ORDERED: Lidocaine 1% 4 ML ONE (18:10)
[2020-04-26] MEDS ORDERED: Dexamethasone 4 MG/ML 5 ML MDV ONE (18:10)
[2020-04-26] MEDS ORDERED: Midazolam 1 MG/ML 2 ML SDV ONE (18:11)
[2020-04-26] MEDS ORDERED: fentaNYL 250 MCG/5 ML SDV ONE (18:11)
[2020-04-26] MEDS ORDERED: Lidocaine 1% 2 ML ONE (18:21)
[2020-04-26] MEDS ORDERED: ePHEDrine 50 MG/ML SDV IVPUSH PRN (18:55)
[2020-04-26] MEDS ORDERED: diphenhydrAMINE 50 MG/ML SDV IVPUSH PRN (18:55)
[2020-04-26] MEDS ORDERED: Ondansetron 4 MG/2 ML SDV IVPUSH PRN ×2 (18:55→19:47)
[2020-04-26] MEDS ORDERED: Midazolam 1 MG/ML 2 ML SDV IVPUSH PRN (18:55)
[2020-04-26] MEDS ORDERED: Albuterol 0.083% 2.5 MG/3 ML Neb Soln NEB PRN (18:55)
[2020-04-26] MEDS ORDERED: HYDROmorphone 1 MG/ML Syringe IVPUSH PRN (18:58)
[2020-04-26] MEDS ORDERED: Phenylephrine 1 MG in Sodium Chloride 0.9% 10 ML IV SCH (19:00)
[2020-04-26] MEDS ORDERED: Acetaminophen/oxyCODONE 325-5 MG Tab PO PRN (19:47)
[2020-04-26] MEDS ORDERED: Meperidine 50 MG/ML Vial IVPUSH PRN (19:54)
--- NOTE | 2020-04-26 19:56 | PCM.POSTAN ---
POST ANESTHESIA ASSESSMENT - MENTAL STATUS Mental Status: Alert - VITAL SIGNS Vital Signs: Last Vital Signs Temp 97.8 04/26/201939 Pulse 119 04/26/201939 Resp 14 04/26/201939 BP 109/87 04/26/201939 Pulse Ox 100 04/26/201939 - RESPIRATORY Respiratory Status: Respiratory Rate WNL, Airway Patent, O2 Saturation Stable, Supplemental Oxygen - CARDIOVASCULAR CV Status: Pulse Rate WNL, Blood Pressure Stable - GASTROINTESTINAL GI Status: No Symptoms - POST OP HYDRATION Hydration Status: Adequate & Stable
--- NOTE | 2020-04-26 19:57 | PCM.OPNOTE ---
- General Post-Op/Procedure Note Date of Surgery/Procedure: 04/26/20 Operative Procedure(s): Laparoscopy, partial right nephrectomy and evacuation of hemoperitoneum Findings: Patient appears to be status post hysterectomy. Left ovary entirely within normal is. Right ovary had an area of corpus luteum cyst which appeared to be oozing blood. This appears to be where the bleeding was coming from. The vaginal cuff there appeared to be hemostatically intact. There is approximate 350 cc of blood in the peritoneal cavity. Ovary otherwise was within normal limits. Appendix was flaccid and not inflamed. Liver edge and gallbladder were noninflamed. Pre Op Diagnosis: 1. Pelvic pain. 2. Hemoperitoneum. 3. Postoperative intra-abdominal hemorrhage. Post-Op Diagnosis: 1. Actively bleeding hemorrhagic right ovarian corpus luteum cyst. 2. Hemoperitoneum. Anesthesia Technique: General ET Tube Other Anesthesia Type: Marcaine 0.5%localtotal of approximately 15 cc. Primary Surgeon: Terrence Beltrán Secondary Surgeon: Welsey Funk Anesthesia Provider: Jennifer Wise Education Program Associate: Tosha Hatfield Reason Education Program Associate Was Necessary: Retraction, assistance, patient safety, quality of care. Pathology: Small segment of right ovary. Fluid Replacement, Intraop: 1,400 EBL in mLs: 350 (Inincluding hemoperitoneum.) Drain/Tube Comments:: Indwelling bladder catheter during surgery only. Complications: None Condition: Good Free Text/Narrative:: Surgery duration: 45 minutes Procedure: The patient was taken to the operating room placed in supine position on the operating table. General endotracheal anesthesia was administered. She received clindamycin and gentamicin for antibiotic prophylaxis. She had sequential compression stockings in place for DVT prophylaxis. A Fry catheter was placed after anesthesia. Infraumbilical incision site was infiltrated with approximately 3 to 5 cc of Marcaine 0.5%. Quarter inch incision was made and verres was placed. With this pneumoperitoneum was established with approximately 3 L of CO2. A laparoscopic 5 mm sleeve was then placed and under laparoscopic guidance a suprapubic and right lower quadrant and left lower quadrant 5 mm ports were placed. The pneumoperitoneum was evacuated and the area was irrigated with normal saline. Small bleeding site on the right ovary was noted. This is in the area of a corpus luteum cyst. This area was elevated and a small portion of the ovary was removed using the Enseal vessel closure system. Hemostasis was confirmed. Flow seal was placed over this area. The vaginal cuff area, left ovary and all the other pedicles were visualized and found to be hemostatically intact. At this time the laparoscopic sleeves were removed under direct visualization. Each of the 4 incisions were closed with a single interrupted suture of 3-0 Monocryl. There further approximated with Dermabond skin glue. The patient was awakened from general endotracheal anesthesia. The Fry catheter was removed prior to her being awakened. Condition: Good.
[2020-04-26] MEDS: fentaNYL 100 MCG/2 ML SDV IVPUSH PRN ×2 (20:18→20:38)
--- NOTE | 2020-04-26 20:34 | PCM48HPAN ---
Post Anesthesia Note - EVALUATION WITHIN 48HRS OF ANESTHETIC Vital Signs in Normal Range: Yes Patient Participated in Evaluation: Yes Respiratory Function Stable: Yes Airway Patent: Yes Cardiovascular Function Stable: Yes Hydration Status Stable: Yes Pain Control Satisfactory: Yes Nausea and Vomiting Control Satisfactory: Yes Mental Status Recovered: Yes Vital Signs: Last Vital Signs Temp 36.9 C 04/26/20 20:30 Pulse 90 04/26/20 20:30 Resp 20 04/26/20 20:30 BP 108/76 04/26/20 20:30 Pulse Ox 96 04/26/20 20:30
--- NOTE | 2020-04-26 22:27 | PCM.SN.2 ---
- Free Text/Narrative Note: Patient's postoperative pain is doing well. She desires discharge home. Vital signs are stable. She is been able to void approximately 400 cc. Discharge instructions: 1. Discharge home 2. Regular, high-fiber diet. 3. Routine postoperative activity including weight lifting no 15 pounds, no driving a car x1 week. No intercourse or tampons. 4. Medications include: Percocet 1-2 p.o. every 4 hours as needed for pain quantity 20 prescription given and ibuprofen 600 mg p.o. every 4 hours as needed 5. Patient is to follow-up in 2 to 4 weeks. 6. Patient is to call for increased bleeding, pain, temperature.
[2020-04-26 22:49] VITALS: BP 114/70; PULSE 79
--- NOTE | 2020-05-15 17:59 | PCM.DCSUM1 ---
Discharge Summary - Hospital Course Free Text/Narrative:: He is a 34-year-old white female admitted from clinic with right lower quadrant pain and hemoperitoneum. She is noted to have a hemorrhagic corpus luteum cyst with hemoperitoneum resulting from this. She was treated with laparoscopy, partial right oophorectomy. HPI Initial Comments: See H&P dictated in clinic note. Diagnosis: Stroke: No - Discharge Data Discharge Date: 04/26/20 Discharge Disposition: Home, Self-Care 01 Condition: Good - Referral to Home Health Primary Care Physician: Terrence Beltrán MD - Patient Summary/Data Operative Procedure(s) Performed: Laparoscopy, partial right oophorectomy and evacuation of hemoperitoneum Hospital Course: Shunt was discharged from surgery kept as an extended surgical patient and discharged on the evening after surgery. - Patient Instructions Diet: Regular Diet as Tolerated Activity: As Tolerated (No intercourse or tampons until bleeding resolves and patient is seen back in clinic. No lifting greater than 15 pounds or driving a car x1 week.) Driving: Do Not Drive Showering/Bathing: May Shower Wound/Incision Care: Keep Operative Site/Wound Site Clean and Dry Notify Provider of: Fever, Increased Pain, Swelling and Redness, Nausea and/or Vomiting - Discharge Plan Home Medications: Home Meds Prazosin [Minpress] 1 mg PO BEDTIME 06/09/18 [History] No122/Iron/Folic Acid [ Multi Tablet] 1 tab PO DAILY 06/09/18 [History] Sertraline [Zoloft] 250 mg PO BEDTIME 06/09/18 [History] Albuterol Sulfate [Albuterol Sulfate Hfa] 1 - 2 puff INH Q4H PRN 04/23/20 [History] QUEtiapine Fumarate [Seroquel] 250 mg PO BEDTIME 04/23/20 [History] buPROPion [Wellbutrin] 100 mg PO DAILY 04/23/20 [History] Ibuprofen [Motrin] 600 mg PO Q4H PRN tablet 04/24/20 [Rx] Acetaminophen/oxyCODONE [Percocet 325-5 MG] 2 tab PO Q4H PRN tablet 04/26/20 [Rx] Albuterol [Proventil Neb Soln] 2.5 mg NEB ONETIME PRN neb 04/26/20 [Rx] estradioL [Estrace] 1 mg PO DAILY #30 tablet 05/09/20 [Rx] traMADol [Ultram] 50 mg PO Q6H PRN tablet 05/09/20 [Rx] Referrals: Terrence Beltrán MD [Primary Care Provider] - (Return to clinicDr. Beltrán2 to 4 weeks.) - Discharge Summary/Plan Comment DC Time >30 min.: No Discharge Summary/Plan Comment: Discharge instructions: 1. Discharge home 2. Diet, activity and follow-up discussed with patient. 3. Precautions given concern increased pain, bleeding, temperature, signs/symptoms of DVT/PE. 4. Medications per home medication was printed, discussed with and given to the patient. 5. Return to clinic-Dr. Beltrán[facility] in 2 weeks. Diagnosis: 1. Hemoperitoneum secondary to bleeding hemorrhagic right ovarian cyst Condition: Good - Patient Data Vitals - Most Recent: Last Vital Signs Temp 36.8 C 04/26/20 21:12 Pulse 79 04/26/20 21:46 Resp 16 04/26/20 21:12 BP 114/70 04/26/20 21:46 Pulse Ox 93 L 04/26/20 21:46 Weight - Most Recent: 71 kg Med Orders - Current: Current Medications Discontinued Medications Albuterol (Proventil Neb Soln) 2.5 mg NEB ONETIME PRN PRN Reason: bronchodilation Bupivacaine HCl (Marcaine 0.5%) Confirm Administered Dose 30 ml .ROUTE .STK-MED ONE Stop: 04/26/20 17:43 Last Admin: 04/26/20 18:56 Dose: 10 ml Documented by: Dexamethasone (Dexamethasone) Confirm Administered Dose 20 mg .ROUTE .STK-MED ONE Stop: 04/26/20 18:11 Diphenhydramine HCl (Benadryl) 25 mg IVPUSH Q6H PRN PRN Reason: pruritis Ephedrine Sulfate (Ephedrine Sulfate) 5 mg IVPUSH ASDIRECTED PRN PRN Reason: Hypotension Fentanyl (Sublimaze) Confirm Administered Dose 250 mcg .ROUTE .STK-MED ONE Stop: 04/26/20 18:12 Fentanyl (Sublimaze) 50 mcg IVPUSH Q5M PRN PRN Reason: Pain Last Admin: 04/26/20 20:38 Dose: 50 mcg Documented by: Glycopyrrolate () Confirm Administered Dose 1 mg .ROUTE .STK-MED ONE Stop: 04/26/20 18:11 Hydromorphone HCl (Dilaudid) Confirm Administered Dose 0.5 mg .ROUTE .STK-MED ONE Stop: 04/26/20 18:11 Hydromorphone HCl (Dilaudid) 1 mg IVPUSH ONETIME PRN PRN Reason: Pain Hydromorphone HCl (Dilaudid) Confirm Administered Dose 0.5 mg .ROUTE .STK-MED ONE Stop: 04/26/20 19:16 Gentamicin Sulfate 360 mg/ (Sodium Chloride) 109 mls @ 109 mls/hr IV ONETIME ONE Stop: 04/26/20 17:47 Last Admin: 04/26/20 18:15 Dose: 109 mls/hr Documented by: Clindamycin Phosphate 900 mg/ (Sodium Chloride) 106 mls @ 200 mls/hr IV ONETIME ONE Stop: 04/26/20 18:17 Last Admin: 04/26/20 18:31 Dose: 200 mls/hr Documented by: Lidocaine HCl (Xylocaine-Mpf 1%) Confirm Administered Dose 4 mls @ as directed .ROUTE .STK-MED ONE Stop: 04/26/20 18:11 Lactated Ringer's (Ringers, Lactated) Confirm Administered Dose 2,000 mls @ as directed .ROUTE .STK-MED ONE Stop: 04/26/20 18:11 Lidocaine HCl (Xylocaine-Mpf 1%) Confirm Administered Dose 2 mls @ as directed .ROUTE .STK-MED ONE Stop: 04/26/20 18:22 Phenylephrine HCl 1 mg/ Sodium (Chloride) 10.1 mls @ 1 mls/sec IV TITRATE TERRENCE; Protocol Ketorolac Tromethamine (Toradol) Confirm Administered Dose 30 mg .ROUTE .STK-MED ONE Stop: 04/26/20 18:11 Meperidine HCl (Meperidine) 25 mg IVPUSH ONETIME PRN PRN Reason: Shivering Last Admin: 04/26/20 20:02 Dose: 25 mg Documented by: Midazolam HCl (Versed 1 Mg/Ml) Confirm Administered Dose 2 mg .ROUTE .STK-MED ONE Stop: 04/26/20 18:12 Midazolam HCl (Versed 1 Mg/Ml) 2 mg IVPUSH ONETIME PRN PRN Reason: Sedation Miscellaneous Medication (Phenylephrine 1 Mg/10 Ml-Ns) Confirm Administered Dose 1 mg IV .STK-MED ONE Stop: 04/26/20 18:11 Neostigmine Methylsulfate (Neostigmine Methylsulfate) Confirm Administered Dose 5 mg .ROUTE .STK-MED ONE Stop: 04/26/20 18:11 Ondansetron HCl (Zofran) Confirm Administered Dose 4 mg .ROUTE .STK-MED ONE Stop: 04/26/20 18:11 Ondansetron HCl (Zofran) 4 mg IVPUSH ONETIME PRN PRN Reason: Nausea/Vomiting Ondansetron HCl (Zofran) 4 mg IVPUSH Q4H PRN PRN Reason: Nausea Oxycodone/Acetaminophen (Percocet 325-5 Mg) 2 tab PO Q4H PRN PRN Reason: Pain Last Admin: 04/26/20 22:01 Dose: 2 tab Documented by: Propofol (Diprivan 20 Ml) Confirm Administered Dose 200 mg .ROUTE .STK-MED ONE Stop: 04/26/20 18:11 Rocuronium [place] (Zemuron) Confirm Administered Dose 50 mg .ROUTE .STK-MED ONE Stop: 04/26/20 18:11
== END 2020-04-26 22:44 | disposition home or self-care (01) ==
LOC: JD.SDS 17:03 → JD.MS 17:18
PROVIDERS: ADMIT Obstetrics & Gynecology; ATTEND Obstetrics & Gynecology
DX: N83.11 Corpus luteum cyst of right ovary (principal); J45.909 Unspecified asthma, uncomplicated; F41.9 Anxiety disorder, unspecified; F32.9 Major depressive disorder, single episode, unspecified; K66.1 Hemoperitoneum; F43.10 Post-traumatic stress disorder, unspecified; F17.210 Nicotine dependence, cigarettes, uncomplicated; Z88.0 Allergy status to penicillin; Z91.041 Radiographic dye allergy status; Z91.030 Bee allergy status; Z79.899 Other long term (current) drug therapy; Z01.812 Encounter for preprocedural laboratory examination; Z20.828 Contact with and (suspected) exposure to other viral communicable diseases
CPT/HCPCS: 36415; 49321; 86850; 86900; 86901; 87635; 96374; 96375; A9270; G0378; J1100; J1170; J1580; J2001; J2175; J2704; J2710; J3010; J3490; J7050; J7120; 00840; J1885; J2250; J2370; J2405; U0002

== ENCOUNTER 2020-05-08 13:58 | Day surgery (SDC) | payer BC, MEDICAID ==
[~2020-05-08 13:58] MED LIST changes: +Albuterol 0.083% 2.5 MG/3 ML Neb Soln NEB ONE; -Clindamycin Phosphate 900 MG in Sodium Chloride 0.9% 100 ML IV SCH; -Dexamethasone 4 MG/ML 5 ML MDV ONE; -HYDROmorphone 0.5 MG/0.5 ML Syringe ONE; -Ketorolac 30 MG/ML SDV ONE; -Lactated Ringers 1,000 ML IV SCH; -Lactated Ringers 1,000 ML ONE; -Lidocaine 1% 6 ML ONE; -Midazolam 1 MG/ML 2 ML SDV ONE; -Ondansetron 4 MG/2 ML SDV ONE; -Propofol 200 MG/20 ML SDV ONE; -Rocuronium 50 MG/5 ML Vial ONE; -Scopolamine 1.5 MG Transdermal Patch TRDERM PRN; -fentaNYL 250 MCG/5 ML SDV ONE
[2020-05-08] MEDS ORDERED: Lactated Ringers 1,000 ML IV SCH (14:00)
[2020-05-08] MEDS ORDERED: Ondansetron 4 MG/2 ML SDV ONE (14:05)
[2020-05-08] MEDS ORDERED: Lactated Ringers 1,000 ML ONE (14:05)
[2020-05-08] MEDS ORDERED: Lidocaine 1% 4 ML ONE (14:05)
[2020-05-08] MEDS ORDERED: Rocuronium 50 MG/5 ML Vial ONE (14:05)
[2020-05-08] MEDS ORDERED: Dexamethasone 4 MG/ML 5 ML MDV ONE (14:06)
[2020-05-08] MEDS ORDERED: Midazolam 1 MG/ML 2 ML SDV ONE (14:06)
[2020-05-08] MEDS ORDERED: fentaNYL 250 MCG/5 ML SDV ONE (14:06)
[2020-05-08] MEDS ORDERED: Propofol 200 MG/20 ML SDV ONE ×2 (14:06→17:13)
[2020-05-08] MEDS ORDERED: Bupivacaine 0.5% 30 ML SDV ONE (14:20)
--- NOTE | 2020-05-08 15:19 | PCM.PREANE ---
Preanesthetic Assessment - Procedure Proposed Procedure: Diagnostic Laparoscopy - Anesthesia/Transfusion/Family Hx Anesthesia History: Prior Anesthesia Without Reaction Family History of Anesthesia Reaction: No Transfusion History: No Prior Transfusion(s) Intubation History: Unknown - Review of Systems General: No Symptoms Pulmonary: No Symptoms (Exercise Induced asthma, mild, controlled. ), Other (Smoker 3 or so a day) Cardiovascular: No Symptoms Gastrointestinal: Abdominal Pain (7 or 8 ) Neurological: Headache (Migraines) Other: Reports: Depression (PTSD), Anxiety - Physical Assessment NPO Status Date: 05/07/20 NPO Status Time: 20:15 Vital Signs: Last Vital Signs Temp 37.0 C 05/08/20 13:55 Pulse 93 05/08/20 13:55 Resp 16 05/08/20 13:55 BP 117/77 05/08/20 13:55 Pulse Ox 98 05/08/20 13:55 Height: 1.78 m Weight: 68.8 kg ASA Class: 2E Airway Class: Mallampati = 2 Dentition: Reports: Dentures (Lower back, out not with her today. ), Missing Tooth/Teeth Thyro-Mental Finger Breadths: 3 Mouth Opening Finger Breadths: 3 ROM/Head Extension: Full Lungs: Clear to Auscultation, Normal Respiratory Effort Cardiovascular: Regular Rate, Regular Rhythm - Allergies Allergies/Adverse Reactions: Allergies Allergy/AdvReac Type Severity Reaction Status Date / Time iodine Allergy Hives Verified 05/08/20 15:00 Penicillins Allergy Swelling Verified 05/08/20 15:00 adhesive tape Allergy Blisters Uncoded 05/08/20 15:00 Bee sting Allergy Anaphylactic Uncoded 05/08/20 15:00 Shock - Anesthesia Plan Pre-Op Medication Ordered: Anxiolytic, Other (Albuterol Nebulizer ) - Acknowledgements Anesthesia Type Planned: General Anesthesia Pt an Appropriate Candidate for the Planned Anesthesia: Yes Alternatives and Risks of Anesthesia Discussed w Pt/Guardian: Yes Pt/Guardian Understands and Agrees with Anesthesia Plan: Yes PreAnesthesia Questionnaire HEENT History: Reports: Hard of Hearing, Impaired Vision, Other (See Below) Other HEENT History: Meniere's disease Cardiovascular History: Reports: None Respiratory History: Reports: Asthma Gastrointestinal History: Reports: None Genitourinary History: Reports: Renal Calculus 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: , 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 Other OB/BYN History: h/o demise Musculoskeletal History: Reports: None Neurological History: Reports: Head Trauma, Migraines, Neuropathy, Peripheral, Vertigo Other Neuro History: Meneris disease Psychiatric History: Reports: Anxiety, Depression, PTSD Endocrine/Metabolic History: Reports: None Hematologic History: Reports: None Immunologic History: Reports: None Oncologic (Cancer) History: Reports: Cervix Dermatologic History: Reports: None - Infectious Disease History Infectious Disease History: Reports: None - Past Surgical History HEENT Surgical History: Reports: Oral Surgery GI Surgical History: Reports: Other (See Below) Other GI Surgeries/Procedures: superior mesenteric artery syndrome, lap jejunostomy Female Surgical History: Reports: Cystectomy, D&C - SUBSTANCE USE Smoking Status *Q: Current Every Day Smoker Tobacco Use Within Last Twelve Months: Cigarettes Recreational Drug Use History: No - HOME MEDS Home Medications: Home Meds Prazosin [Minpress] 1 mg PO BEDTIME 06/09/18 [History] No122/Iron/Folic Acid [ Multi Tablet] 1 tab PO DAILY 06/09/18 [History] Sertraline [Zoloft] 100 mg PO BEDTIME 06/09/18 [History] Albuterol Sulfate [Albuterol Sulfate Hfa] 1 - 2 puff INH Q4H PRN 04/23/20 [History] QUEtiapine Fumarate [Seroquel] 300 mg PO BEDTIME 04/23/20 [History] buPROPion [Wellbutrin] 100 mg PO DAILY 04/23/20 [History] Ibuprofen [Motrin] 600 mg PO Q4H PRN tablet 04/24/20 [Rx] Acetaminophen/oxyCODONE [Percocet 325-5 MG] 2 tab PO Q4H PRN tablet 04/26/20 [Rx] Albuterol [Proventil Neb Soln] 2.5 mg NEB ONETIME PRN neb 04/26/20 [Rx] - CURRENT (IN HOUSE) MEDS Current Meds: Current Medications Lactated Ringer's (Ringers, Lactated) 1,000 mls @ 125 mls/hr IV ASDIRECTED TERRENCE Stop: 05/08/20 23:00 Last Admin: 05/08/20 14:20 Dose: 125 mls/hr Documented by: Lidocaine/Sodium Bicarbonate (Buffered Lidocaine 1% In Ns 8.4%) 0.25 ml IDERM ONETIME PRN PRN Reason: Prior to IV Start Stop: 05/08/20 23:00 Last Admin: 05/08/20 14:20 Dose: 0.25 ml Documented by: Sodium Chloride (Saline Flush) 10 ml FLUSH ASDIRECTED PRN PRN Reason: Keep Vein Open Stop: 05/08/20 23:00 Discontinued Medications Albuterol (Proventil Neb Soln) 2.5 mg NEB ONETIME ONE Stop: 05/08/20 13:55 Last Admin: 05/08/20 14:39 Dose: 2.5 mg Documented by: Bupivacaine HCl (Marcaine 0.5%) Confirm Administered Dose 30 ml .ROUTE .STK-MED ONE Stop: 05/08/20 14:21 Dexamethasone (Dexamethasone) Confirm Administered Dose 20 mg .ROUTE .STK-MED ONE Stop: 05/08/20 14:07 Fentanyl (Sublimaze) Confirm Administered Dose 250 mcg .ROUTE .STK-MED ONE Stop: 05/08/20 14:07 Lidocaine HCl (Xylocaine-Mpf 1%) Confirm Administered Dose 4 mls @ as directed .ROUTE .STK-MED ONE Stop: 05/08/20 14:06 Lactated Ringer's (Ringers, Lactated) Confirm Administered Dose 1,000 mls @ as directed .ROUTE .STK-MED ONE Stop: 05/08/20 14:06 Midazolam HCl (Versed 1 Mg/Ml) Confirm Administered Dose 2 mg .ROUTE .STK-MED ONE Stop: 05/08/20 14:07 Ondansetron HCl (Zofran) Confirm Administered Dose 4 mg .ROUTE .STK-MED ONE Stop: 05/08/20 14:06 Propofol (Diprivan 20 Ml) Confirm Administered Dose 400 mg .ROUTE .STK-MED ONE Stop: 05/08/20 14:07 Rocuronium [place] (Zemuron) Confirm Administered Dose 50 mg .ROUTE .STK-MED ONE Stop: 05/08/20 14:06
[2020-05-08] MEDS ORDERED: HYDROmorphone 0.5 MG/0.5 ML Syringe ONE (15:52)
[2020-05-08] MEDS ORDERED: Clindamycin Phosphate 900 MG/6 ML SDV ONE (16:07)
[2020-05-08] MEDS ORDERED: Ketamine 500 mg/10 ML MDV ONE (16:13)
[2020-05-08] MEDS ORDERED: DEXTROSE 5% IV ONE ×2 (16:15)
[2020-05-08] MEDS ORDERED: WATER IV ONE ×2 (16:15)
[2020-05-08] MEDS ORDERED: GENTAMICIN IV ONE ×2 (16:15)
[2020-05-08] MEDS ORDERED: HYDROmorphone 0.5 MG/0.5 ML Syringe IVPUSH PRN (16:20)
[2020-05-08] MEDS ORDERED: fentaNYL 100 MCG/2 ML SDV IVPUSH PRN (16:20)
[2020-05-08] MEDS ORDERED: Ondansetron 4 MG/2 ML SDV IVPUSH PRN ×2 (16:20→18:21)
[2020-05-08] MEDS ORDERED: Ketorolac 15 MG/ML SDV ONE (16:30)
[2020-05-08] MEDS ORDERED: Bupivacaine 0.5%/EPINEPHrine 1:200,000 50 ML MDV ONE (16:41)
[2020-05-08] MEDS ORDERED: Lidocaine 1% with EPINEPHrine 1:100,000 20 ML MDV ONE (16:41)
--- NOTE | 2020-05-08 17:43 | PCM.OPNOTE ---
- General Post-Op/Procedure Note Date of Surgery/Procedure: 05/08/20 Operative Procedure(s): laparoscopic appendectomy Findings: acute tip appendicitis Pre Op Diagnosis: abdominal pain Post-Op Diagnosis: acute appendicitis Anesthesia Technique: General ET Tube Primary Surgeon: Wesley Funk Secondary Surgeon: Jessica Medrano Anesthesia Provider: Marta Nickerson Pathology: appendix Fluid Replacement, Intraop: 1,800 Output, Urine Amount: 225 EBL in mLs: 50 Complications: none apparent Condition: Good
--- NOTE | 2020-05-08 18:01 | PCM.PRNOTE ---
- Free Text/Narrative Note: Operative Report Date of surgery: 2019 Preoperative diagnosis: Abdominal pain. Postoperative diagnosis: Acute appendicitis Procedure performed: laparoscopic appendectomy Surgeon: Dr. Jessica Medrano and Dr. Soto Funk Anesthesia: General Plate Painter Apprentice: Colton Nickerson CRNA Estimated blood loss: 50 mL IV fluids: 1800 mL Urine output: 225mL Drains and lines: None Findings: Acute tip appendicitis Pathology: Appendix Indications for procedure: The patient is a 34-year-old female who is a patient of Dr. Funk. She was having abdominal pain and had several abdominal procedures completed already. She was taken back to the operating room under [facility] for oophorectomies. During this procedure, evaluation was done of the appendix. It was noted that the tip of the appendix was inflamed consistent with appendicitis. General surgery was consulted for removal of the appendix during the procedure. 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 Description of procedure: The patient was taken back to the operating room and placed in supine position on the operating table. SCD boots were in place and functional prior to the start of the procedure. The procedure was started by Dr. Funk, please see separate dictation for that portion of the procedure. The patient was positioned in Trendelenburg and we proceeded to mobilize the appendix. The appendix appeared inflamed at the tip. The appendix was then grasped and with blunt dissection was brought into the surgical field. The mesoappendix dissected from the appendix. The appendix was then taken with a tissue staple load. The mesoappendix was then taken with a vascular staple load. Hemostasis was achieved. A TAP block was then performed using mixed 1% lidocaine with epinephrine and 0.5% bupivacaine with epinephrine. Please see Dr. Funk's portion of the procedure for closure and remaining details. All sponge and needle counts were correct. Jessica Medrano MD General surgery
--- NOTE | 2020-05-08 18:02 | PCM.POSTAN ---
POST ANESTHESIA ASSESSMENT - MENTAL STATUS Mental Status: Alert, Oriented - VITAL SIGNS Vital Signs: Last Vital Signs Temp 37.1 C 05/08/20 17:52 Pulse 110 H 05/08/20 17:52 Resp 15 05/08/20 17:52 BP 113/73 05/08/20 17:52 Pulse Ox 97 05/08/20 17:52 - RESPIRATORY Respiratory Status: Respiratory Rate WNL, Airway Patent, O2 Saturation Stable, Supplemental Oxygen - CARDIOVASCULAR CV Status: Blood Pressure Stable, Elevated Pulse Rate - GASTROINTESTINAL GI Status: No Symptoms - PAIN Pain Score: 5 - POST OP HYDRATION Hydration Status: Adequate & Stable
--- NOTE | 2020-05-08 18:04 | PCM.OPNOTE ---
- General Post-Op/Procedure Note Date of Surgery/Procedure: 05/08/20 Operative Procedure(s): laproscopic bilateral oophorectomy (and appendectomy by Dr Barnes) Pre Op Diagnosis: pelvic pain Post-Op Diagnosis: Same plus inflammed appendix and right ovary to side wall adhesions Anesthesia Technique: General ET Tube Primary Surgeon: Wesley Funk Secondary Surgeon: Jose M Dumont Anesthesia Provider: Marta Nickerson Marketing Communications Leader: Jasmyne Hancock (PAS) Marketing Communications Leader: Jessica Medrano Reason Marketing Communications Leader Was Necessary: Assist in surgery, decrease comorbidity and mortality Role of Marketing Communications Leader: Assist in surgery, decrease comorbidity and mortality Fluid Replacement, Intraop: 1,800 Output, Urine Amount: 225 EBL in mLs: 50 Complications: Inflamed appendix required consultation with Dr. Barnes during the procedure, surgeon called her sister and family and obtain consent for the appendectomy as well. Condition: Good Free Text/Narrative:: Intake & Output 05/08/20 05/08/20 05/08/20 06:59 14:59 22:59 Intake Total 1800 Output Total 225 Balance 1575 Patient was transferred to the operating room and main OR #3 placed under general anesthesia with endotracheal intubation in supine position prepared and draped in a sterile fashion Fry cath was placed to gravity drainage and removed after the procedure using non-iodine prep. Timeout performed patient prepared and draped in sterile fashion SCDs in place and functioning prior to surgery patient also received prophylactic antibiotics Clindamycin 900 mg 1608, Gentamycin 340 mg at 1628, SCDs in place and functioning prior to surgery. Patient having been prepared and draped in a sterile fashion with non-iodine prep 2 mL of 0.5% Marcaine injected at the umbilicus small 5 mm incision vertically and pneumoperitoneum needle introduced pneumoperitoneum obtained without difficulty. 5 mm trocar was introduced. The right and left lower quadrant 5 mm trochars were introduced through previous incisions injecting 2 mL of 0.5% Marcaine and then 5 mm incision and placing the 5 mm trochars. At the suprapubic area 10/12 mm trocar placed injecting in the area of the incision and making it 12 mm incision the trocar was introduced without difficulty. There were adhesions and edema of the appendix over the right ovary and small bowel the small bowel was moved away from the right ovary and the appendix was gently peeled off of the right ovary and the right ovary was elevated crossclamped with patent needle and removed without difficulty placed in the cul-de-sac. The left ovary was removed as well per patient request no adhesions of that ovary. Crossclamping and the infundibulopelvic ligament with the Enseal activating incising and removing the left ovary as well. Because of the edematous and inflamed nature of the appendix surgeon contact lens blocker and cutter Dr. Barnes is called and she evaluated the appendix and appendectomy was performed by her that portion note was dictated by her. The area of the right ovary where the appendix and small bowel were adhesed was having some oozing and Surgicel was placed in these areas with pressure x2 and removed from the abdomen and additional Enseal application and coagulation performed in 2 areas and bleeding was contained. A TAP (transverse abdominal plain) section of total of 40 mL of 0.5% Marcaine 1% lid ocaine and epinephrine and multiple confluent areas 4 on each side. Tension was then turned to the closure of the incisions the suprapubic incision was closed without difficulty utilizing "skye hook" and suture. The left and right lower quadrant and umbilical incision closed with 3-0 Monocryl interrupted suture. Dermabond applied to all the areas of incisions. Punch needle pack instrument count correct x2 and the patient was transported to the anesthesia care unit in satisfactory condition. I talked with her sister Velia after the surgery. The general surgeon talked to her sister and family and obtain consent verbally for the appendectomy prior to performing same.
[2020-05-08] MEDS ORDERED: Albuterol 6.7 GM Inhaler INH PRN (18:18)
[2020-05-08] MEDS ORDERED: Albuterol 0.083% 2.5 MG/3 ML Neb Soln INH PRN (18:18)
[2020-05-08] MEDS ORDERED: Nalbuphine 10 MG/ML Syringe IVPUSH PRN ×2 (18:23→18:35)
[2020-05-08] MEDS ORDERED: diphenhydrAMINE 25 MG Cap PO PRN (19:33)
[2020-05-08] MEDS: traMADol 50 MG Tab PO PRN (20:36)
[2020-05-08] MEDS ORDERED: Sertraline 50 MG Tab PO SCH (21:00)
[2020-05-08] MEDS ORDERED: Prazosin 1 MG Cap PO SCH (21:00)
[2020-05-08] MEDS ORDERED: QUEtiapine 100 MG Tab PO SCH (21:00)
[2020-05-08] MEDS ORDERED: PRAZOSIN 1 MG PO SCH (21:00)
[2020-05-08] MEDS ORDERED: SERTRALINE 100 MG PO SCH (21:45)
[2020-05-08] MEDS ORDERED: QUETIAPINE 300 MG PO SCH (22:00)
[2020-05-09] MEDS: traMADol 50 MG Tab PO PRN ×2 (04:38→09:48)
--- NOTE | 2020-05-09 07:28 | PCM48HPAN ---
Post Anesthesia Note - EVALUATION WITHIN 48HRS OF ANESTHETIC Vital Signs in Normal Range: Yes Patient Participated in Evaluation: Yes Respiratory Function Stable: Yes Airway Patent: Yes Cardiovascular Function Stable: Yes Hydration Status Stable: Yes Pain Control Satisfactory: Yes Nausea and Vomiting Control Satisfactory: Yes Mental Status Recovered: Yes Vital Signs: Last Vital Signs Temp 36.7 C 05/08/20 23:59 Pulse 94 05/08/20 23:59 Resp 14 05/08/20 23:59 BP 98/49 L 05/08/20 23:59 Pulse Ox 96 05/08/20 23:59 - COMMENTS/OBSERVATIONS Free Text/Narrative:: no anesthesia complications noted
--- NOTE | 2020-05-09 08:51 | PCM.DCSUM1 ---
Discharge Summary - Hospital Course Free Text/Narrative:: [facility] Post-Op/Procedure Note Patient Name: CECI EISENBERG Date of : 87 Patient Status: Surgical Day Care Attending Provider: Wesley Funk Date: 05/08/20 17:52 Initialization Date: 05/08/20 17:52 - General Post-Op/Procedure Note Date of Surgery/Procedure: 05/08/20 Operative Procedure(s): laproscopic bilateral oophorectomy (and appendectomy by Dr Barnes) Pre Op Diagnosis: pelvic pain Post-Op Diagnosis: Same plus inflammed appendix and right ovary to side wall adhesions Anesthesia Technique: General ET Tube Primary Surgeon: Wesley Funk Secondary Surgeon: Jose M Dumont Anesthesia Provider: Marta Nickerson Finishing Range Feeder: Jasmyne Hancock (PAS) Finishing Range Feeder: Jessica Medrano Reason Finishing Range Feeder Was Necessary: Assist in surgery, decrease comorbidity and mortality Role of Finishing Range Feeder: Assist in surgery, decrease comorbidity and mortality Fluid Replacement, Intraop: 1,800 Output, Urine Amount: 225 EBL in mLs: 50 Complications: Inflamed appendix required consultation with Dr. Barnes during the procedure, surgeon called her sister and family and obtain consent for the appendectomy as well. Condition: Good Free Text/Narrative:: Intake & Output 05/08/20 05/08/20 05/08/20 06:59 14:59 22:59 Intake Total 1800 Output Total 225 Balance 1575 Patient was transferred to the operating room and main OR #3 placed under general anesthesia with endotracheal intubation in supine position prepared and draped in a sterile fashion Fry cath was placed to gravity drainage and removed after the procedure using non-iodine prep. Timeout performed patient prepared and draped in sterile fashion SCDs in place and functioning prior to surgery patient also received prophylactic antibiotics Clindamycin 900 mg 1608, Gentamycin 340 mg at 1628, SCDs in place and functioning prior to surgery. Patient having been prepared and draped in a sterile fashion with non-iodine prep 2 mL of 0.5% Marcaine injected at the umbilicus small 5 mm incision vertically and pneumoperitoneum needle introduced pneumoperitoneum obtained without difficulty. 5 mm trocar was introduced. The right and left lower quadrant 5 mm trochars were introduced through previous incisions injecting 2 mL of 0.5% Marcaine and then 5 mm incision and placing the 5 mm trochars. At the suprapubic area 10/12 mm trocar placed injecting in the area of the incision and making it 12 mm incision the trocar was introduced without difficulty. There were adhesions and edema of the appendix over the right ovary and small bowel the small bowel was moved away from the right ovary and the appendix was gently peeled off of the right ovary and the right ovary was elevated crossclamped with patent needle and removed without difficulty placed in the cul-de-sac. The left ovary was removed as well per patient request no adhesions of that ovary. Crossclamping and the infundibulopelvic ligament with the Enseal activating incising and removing the left ovary as well. Because of the edematous and inflamed nature of the appendix surgeon contract recruiter Dr. Barnes is called and she e valuated the appendix and appendectomy was performed by her that portion note was dictated by her. The area of the right ovary where the appendix and small bowel were adhesed was having some oozing and Surgicel was placed in these areas with pressure x2 and removed from the abdomen and additional Enseal application and coagulation performed in 2 areas and bleeding was contained. A TAP (transverse abdominal plain) section of total of 40 mL of 0.5% Marcaine 1% lidocaine and epinephrine and multiple confluent areas 4 on each side. Tension was then turned to the closure of the incisions the suprapubic incision was closed without difficulty utilizing "skye hook" and suture. The left and right lower quadrant and umbilical incision closed with 3-0 Monocryl interrupted suture. Dermabond applied to all the areas of incisions. Punch needle pack instrument count correct x2 and the patient was transported to the anesthesia care unit in satisfactory condition. I talked with her sister Vleia after the surgery. The general surgeon talked to her sister and family and obtain consent verbally for the appendectomy prior to performing same. [facility] Procedure Note Patient Name: CECI EISENBERG Date of : 87 Patient Status: Surgical Day Care Attending Provider: Wesley Funk Date: 05/08/20 17:43 Initialization Date: 05/08/20 17:43 - Free Text/Narrative Note: Operative Report Date of surgery: 2019 Preoperative diagnosis: Abdominal pain. Postoperative diagnosis: Acute appendicitis Procedure performed: laparoscopic appendectomy Surgeon: Dr. Jessica Medrano and Dr. Soto Funk Anesthesia: General Straight Pin Making Machine Operator: Colton Nickerson CRNA Estimated blood loss: 50 mL IV fluids: 1800 mL Urine output: 225mL Drains and lines: None Findings: Acute tip appendicitis Pathology: Appendix Indications for procedure: The patient is a 34-year-old female who is a patient of Dr. Funk. She was having abdominal pain and had several abdominal procedures completed already. She was taken back to the operating room under [employer] for oophorectomies. During this procedure, evaluation was done of the appendix. It was noted that the tip of the appendix was inflamed consistent with appendicitis. General surgery was consulted for removal of the appendix during the procedure. Consent was obtained from the patient's it sales representative after discussion of additional risk of bowel injury. Description of procedure: The patient was taken back to the operating room and placed in supine position on the operating table. SCD boots were in place and functional prior to the start of the procedure. The procedure was started by Dr. Funk, please see separate dictation for that portion of the procedure. The patient was positioned in Trendelenburg and we proceeded to mobilize the appendix. The appendix appeared inflamed at the tip. The appendix was then grasped and with blunt dissection was brought into the surgical field. The mesoappendix dissected from the appendix. The appendix was then taken with a tissue staple load. The mesoappendix was then taken with a vascular staple load. Hemostasis was achieved. A TAP block was then performed using mixed 1% lidocaine with epinephrine and 0.5% bupivacaine with epinephrine. Please see Dr. Funk's portion of the procedure for closure and remaining details. All sponge and needle counts were correct. Jessica Medrano MD General surgery HPI Initial Comments: [facility] Post-Op/Procedure Note Patient Name: CECI EISENBERG Date of : 87 Patient Status: Surgical Day Care Attending Provider: Wesley Funk Date: 05/08/20 17:52 Initialization Date: 05/08/20 17:52 - General Post-Op/Procedure Note Date of Surgery/Procedure: 05/08/20 Operative Procedure(s): laproscopic bilateral oophorectomy (and appendectomy by Dr Barnes) Pre Op Diagnosis: pelvic pain Post-Op Diagnosis: Same plus inflammed appendix and right ovary to side wall adhesions Anesthesia Technique: General ET Tube Primary Surgeon: Wesley Funk Secondary Surgeon: Jose M Dumont Anesthesia Provider: Marta Nickerson Finishing Range Feeder: Jasmyne Hancock (PAS) Finishing Range Feeder: Jessica Medrano Reason Finishing Range Feeder Was Necessary: Assist in surgery, decrease comorbidity and mortality Role of Finishing Range Feeder: Assist in surgery, decrease comorbidity and mortality Fluid Replacement, Intraop: 1,800 Output, Urine Amount: 225 EBL in mLs: 50 Complications: Inflamed appendix required consultation with Dr. Barnes during the procedure, surgeon called her sister and family and obtain consent for the appendectomy as well. Condition: Good Free Text/Narrative:: Intake & Output 05/08/20 05/08/20 05/08/20 06:59 14:59 22:59 Intake Total 1800 Output Total 225 Balance 1575 Patient was transferred to the operating room and main OR #3 placed under g eneral anesthesia with endotracheal intubation in supine position prepared and draped in a sterile fashion Fry cath was placed to gravity drainage and removed after the procedure using non-iodine prep. Timeout performed patient prepared and draped in sterile fashion SCDs in place and functioning prior to surgery patient also received prophylactic antibiotics Clindamycin 900 mg 1608, Gentamycin 340 mg at 1628, SCDs in place and functioning prior to surgery. Patient having been prepared and draped in a sterile fashion with non-iodine prep 2 mL of 0.5% Marcaine injected at the umbilicus small 5 mm incision vertically and pneumoperitoneum needle introduced pneumoperitoneum obtained without difficulty. 5 mm trocar was introduced. The right and left lower quadrant 5 mm trochars were introduced through previous incisions injecting 2 mL of 0.5% Marcaine and then 5 mm incision and placing the 5 mm trochars. At the suprapubic area 10/12 mm trocar placed injecting in the area of the incision and making it 12 mm incision the trocar was introduced without difficulty. There were adhesions and edema of the appendix over the right ovary and small bowel the small bowel was moved away from the right ovary and the appendix was gently peeled off of the right ovary and the right ovary was elevated crossclamped with patent needle and removed without difficulty placed in the cul-de-sac. The left ovary was removed as well per patient request no adhesions of that ovary. Crossclamping and the infundibulopelvic ligament with the Enseal activating incising and removing the left ovary as well. Because of the edematous and inflamed nature of the appendix surgeon contract recruiter Dr. Barnes is called and she evaluated the appendix and appendectomy was performed by her that portion note was dictated by her. The area of the right ovary where the appendix and small bowel were adhesed was having some oozing and Surgicel was placed in these areas with pressure x2 and removed from the abdomen and additional Enseal application and coagulation performed in 2 areas and bleeding was contained. A TAP (transverse abdominal plain) section of total of 40 mL of 0.5% Marcaine 1% lidocaine and epinephrine and multiple confluent areas 4 on each side. Tension was then turned to the closure of the incisions the suprapubic incision was closed without difficulty utilizing "skye hook" and suture. The left and right lower quadrant and umbilical incision closed with 3-0 Monocryl interrupted suture. Dermabond applied to all the areas of incisions. Punch needle pack instrument count correct x2 and the patient was transported to the anesthesia care unit in satisfactory condition. I talked with her sister Velia after the surgery. The general surgeon talked to her sister and family and obtain consent verbally for the appendectomy prior to performing same. [facility] Procedure Note Patient Name: CECI EISENBERG Date of : 87 Patient Status: Surgical Day Care Attending Provider: Wesley Funk Date: 05/08/20 17:43 Initialization Date: 05/08/20 17:43 - Free Text/Narrative Note: Operative Report Date of surgery: 2019 Preoperative diagnosis: Abdominal pain. Postoperative diagnosis: Acute appendicitis Procedure performed: laparoscopic appendectomy Surgeon: Dr. Jessica Medrano and Dr. Soto Funk Anesthesia: General Straight Pin Making Machine Operator: Colton Nickerson CRNA Estimated blood loss: 50 mL IV fluids: 1800 mL Urine output: 225mL Drains and lines: None Findings: Acute tip appendicitis Pathology: Appendix Indications for procedure: The patient is a 34-year-old female who is a patient of Dr. Funk. She was having abdominal pain and had several abdominal procedures completed already. She was taken back to the operating room under [employer] for oophorectomies. During this procedure, evaluation was done of the appendix. It was noted that the tip of the appendix was inflamed consistent with appendicitis. General surgery was consulted for removal of the appendix during the procedure. Consent was obtained from the patient's it sales representative after discussion of additional risk of bowel injury. Description of procedure: The patient was taken back to the operating room and placed in supine position on the operating table. SCD boots were in place and functional prior to the start of the procedure. The procedure was started by Dr. Funk, please see separate dictation for that portion of the procedure. The patient was positioned in Trendelenburg and we proceeded to mobilize the appendix. The appendix appeared inflamed at the tip. The appendix was then grasped and with blunt dissection was brought into the surgical field. The mesoappendix dissected from the appendix. The appendix was then taken with a tissue staple load. The mesoappendix was then taken with a vascular staple load. Hemostasis was achieved. A TAP block was then performed using mixed 1% lidocaine with epinephrine and 0.5% bupivacaine with epinephrine. Please see Dr. Funk's portion of the procedure for closure and remaining details. All sponge and needle counts were correct. Jessica Medrano MD General surgery Brief History: [facility] . Post-Op/Procedure Note. Patient Name: CECI EISENBERG [facility] Record Number: [id number]. Date of : 87Patient Status: Surgical Day Care. Attending Provider: Wesley Funkount Number: [id number]. Date: 05/08/20 17:52Initialization Date: 05/08/20 17:52. - General Post-Op/Procedure Note. Date of Surgery/Procedure: 05/08/20. Operative Procedure(s): laproscopic bilateral oophorectomy (and appe ndectomy by Dr Barnes). Pre Op Diagnosis: pelvic pain. Post-Op Diagnosis: Same plus inflammed appendix and right ovary to side wall adhesions. Anesthesia Technique: General ET Tube. Primary Surgeon: Wesley Funk. Secondary Surgeon: Jose M Dumont. Anesthesia Provider: Marta Nickerson. Finishing Range Feeder: Jasmyne Hancock (ANITA). Finishing Range Feeder: Jessica Medrano. Reason Finishing Range Feeder Was Necessary: Assist in surgery, decrease comorbidity and mortality. Role of Finishing Range Feeder: Assist in surgery, decrease comorbidity and mortality. Fluid Replacement, Intraop: 1,800. Output, Urine Amount: 225. EBL in mLs: 50. Complications: Inflamed appendix required consultation with Dr. Barnes during the procedure, surgeon called her sister and family and obtain consent for the appendectomy as well. Condition: Good. Free Text/Narrative:: Intake & Output. 05/08/2009/. 06:5914:5922:59. Intake [id number]. Output [id number]. [id number]. Patient was transferred to the operating room and main OR #3 placed under general anesthesia with endotracheal intubation in supine position prepared and draped in a sterile fashion Fry cath was placed to gravity drainage and removed after the procedure using non-iodine prep. Timeout performed patient prepared and draped in sterile fashion SCDs in place and functioning prior to surgery patient also received prophylactic antibiotics Clindamycin 900 mg 1608, Gentamycin 340 mg at 1628, SCDs in place and functioning prior to surgery. Patient having been prepared and draped in a sterile fashion with non-iodine prep 2 mL of 0.5% Marcaine injected at the umbilicus small 5 mm incision vertically and pneumoperitoneum needle introduced pneumoperitoneum obtained without difficulty. 5 mm trocar was introduced. The right and left lower quadrant 5 mm trochars were introduced through previous incisions injecting 2 mL of 0.5% Marcaine and then 5 mm incision and placing the 5 mm trochars. At the suprapubic area 10/12 mm trocar placed injecting in the area of the incision and making it 12 mm incision the trocar was introduced without difficulty. There were adhesions and edema of the appendix over the right ovary and small bowel the small bowel was moved away from the right ovary and the appendix was gently peeled off of the right ovary and the right ovary was elevated crossclamped with patent needle and removed without difficulty placed in the cul-de-sac. The left ovary was removed as well per patient request no adhesions of that ovary. Crossclamping and the infundibulopelvic ligament with the Enseal activating incising and removing the left ovary as well. Because of the edematous and inflamed nature of the appendix surgeon contract recruiter Dr. Barnes is called and she evaluated the appendix and appendectomy was performed by her that portion note was dictated by her. The area of the right ovary where the appendix and small bowel were adhesed was having some oozing and Surgicel was placed in these areas with pressure x2 and removed from the abdomen and additional Enseal application and coagulation performed in 2 areas and bleeding was contained. A TAP (transverse abdominal plain) section of total of 40 mL of 0.5% Marcaine 1% lidocaine and epinephrine and multiple confluent areas 4 on each side. Tension was then turned to the closure of the incisions the suprapubic incision was closed without difficulty utilizing "skye hook" and suture. The left and right lower quadrant and umbilical incision closed with 3- 0 Monocryl interrupted suture. Dermabond applied to all the areas of incisions. Punch needle pack instrument count correct x2 and the patient was transported to the anesthesia care unit in satisfactory condition. I talked with her sister Velia after the surgery. The general surgeon talked to her sister and family and obtain consent verbally for the appendectomy prior to performing same. [facility] . Procedure Note. Patient Name: CECI EISENBERG [facility] Record Number: [id number]. Date of : 87Patient Status: Surgical Day Care. Attending Provider: Wesley Funk Number: [id number]. Date: 05/08/20 17:43Initialization Date: 05/08/20 17:43. - Free Text/Narrative. Note: Operative Report. Date of surgery: 2019. Preoperative diagnosis: Abdominal pain. Postoperative diagnosis: Acute appendicitis. Procedure performed: laparoscopic appendectomy. Surgeon: Dr. Jessica Medrano and Dr. Soto Funk. Anesthesia: General. Straight Pin Making Machine Operator: Colton Nickerson CRNA. Estimated blood loss: 50 mL. IV fluids: 1800 mL. Urine output: 225mL. Drains and lines: None. Findings: Acute tip appendicitis. Pathology: Appendix. Indications for procedure: The patient is a 34-year-old female who is a patient of Dr. Funk. She was having abdominal pain and had several abdominal procedures completed already. She was taken back to the operating room under [employer] for oophorectomies. During this procedure, evaluation was done of the appendix. It was noted that the tip of the appendix was inflamed consistent with appendicitis. General surgery was consulted for removal of the appendix during the procedure. Consent was obtained from the patient's it sales representative after discussion of additional risk of bowel injury. Description of procedure: The patient was taken back to the operating room and placed in supine position on the operating table. SCD boots were in place and functional prior to the start of the procedure. The procedure was started by Dr. Funk, please see separate dictation for that portion of the procedure. The patient was positioned in Trendelenburg and we proceeded to mobilize the appendix. The appendix appeared inflamed at the tip. The appendix was then grasped and with blunt dissection was brought into the surgical field. The mesoappendix dissected from the appendix. The appendix was then taken with a tissue staple load. The mesoappendix was then taken with a vascular staple load. Hemostasis was achieved. A TAP block was then performed using mixed 1% lidocaine with epinephrine and 0.5% bupivacaine with epinephrine. Please see Dr. Funk's portion of the procedure for closure and remaining details. All sponge and needle counts were correct. Jessica Medrano MD. General surgery Diagnosis: Stroke: No - Discharge Data Discharge Date: 05/09/20 Discharge Disposition: Home, Self-Care 01 Condition: Good - Referral to Home Health Primary Care Physician: Wesley Funk MD - Discharge Diagnosis/Problem(s) (1) Appendicitis, acute SNOMED Code(s): 34371518 ICD Code: K35.80 - UNSPECIFIED ACUTE APPENDICITIS Status: Acute Current Visit: Yes Qualifiers: Acute appendicitis type: unspecified acute appendicitis type Qualified Code(s): K35.80 - Unspecified acute appendicitis (2) Para-ovarian adhesion SNOMED Code(s): 766442967 ICD Code: N73.6 - FEMALE PELVIC PERITONEAL ADHESIONS (POSTINFECTIVE) Status: Acute Current Visit: Yes (3) Pelvic pain SNOMED Code(s): 27156646 ICD Code: R10.2 - PELVIC AND PERINEAL PAIN Status: Acute Current Visit: No - Patient Summary/Data Operative Procedure(s) Performed: laproscopic bilateral oophorectomy (and appendectomy by Dr Barnes) Complications: none Consults: Dr Barnes intraoperative consult Hospital Course: uneventful - Patient Instructions Diet: Usual Diet as Tolerated Driving: Do Not Drive (x1 week or until off Tramodol for 24 hours) Showering/Bathing: May Shower, No Tub Bathing/Swimming (x6 weeks) Wound/Incision Care: Keep Operative Site/Wound Site Clean and Dry Notify Provider of: Fever, Increased Pain, Swelling and Redness, Drainage, Nausea and/or Vomiting - Discharge Plan *PRESCRIPTION DRUG MONITORING PROGRAM REVIEWED*: Not Applicable *COPY OF PRESCRIPTION DRUG MONITORING REPORT IN PATIENT KRISTY: Not Applicable Prescriptions/Med Rec: estradioL [Estrace] 1 mg PO DAILY #30 tablet Home Medications: Home Meds Prazosin [Minpress] 1 mg PO BEDTIME 06/09/18 [History] No122/Iron/Folic Acid [ Multi Tablet] 1 tab PO DAILY 06/09/18 [History] Sertraline [Zoloft] 250 mg PO BEDTIME 06/09/18 [History] Albuterol Sulfate [Albuterol Sulfate Hfa] 1 - 2 puff INH Q4H PRN 04/23/20 [History] QUEtiapine Fumarate [Seroquel] 250 mg PO BEDTIME 04/23/20 [History] buPROPion [Wellbutrin] 100 mg PO DAILY 04/23/20 [History] Ibuprofen [Motrin] 600 mg PO Q4H PRN tablet 04/24/20 [Rx] Acetaminophen/oxyCODONE [Percocet 325-5 MG] 2 tab PO Q4H PRN tablet 04/26/20 [Rx] Albuterol [Proventil Neb Soln] 2.5 mg NEB ONETIME PRN neb 04/26/20 [Rx] estradioL [Estrace] 1 mg PO DAILY #30 tablet 05/09/20 [Rx] traMADol [Ultram] 50 mg PO Q6H PRN tablet 05/09/20 [Rx] Patient Handouts: Laparoscopic Appendectomy, Adult, Care After, Bilateral Salpingo-Oophorectomy, Care After, Menopause and Hormone Replacement Therapy Referrals: Terrence Beltrán MD [Physician] - Wesley Funk MD [Primary Care Provider] - (Patient has appointment with Dr Beltrán next week) - Discharge Summary/Plan Comment DC Time >30 min.: No - Patient Data Vitals - Most Recent: Last Vital Signs Temp 98.1 F 05/08/20 23:59 Pulse 94 05/08/20 23:59 Resp 14 05/08/20 23:59 BP 98/49 L 05/08/20 23:59 Pulse Ox 96 05/08/20 23:59 Weight - Most Recent: 151 lb 10.85 oz I&O - Last 24 hours: Intake & Output 05/08/20 05/09/20 05/09/20 22:59 06:59 14:59 Intake Total 4900 Output Total 675 Balance 4225 Lab Results - Last 24 hrs: Laboratory Results - last 24 hr 05/08/20 Range/Units 12:58 Blood Type A POSITIVE Gel Antibody Screen Negative Med Orders - Current: Current Medications Albuterol (Proventil Neb Soln) 2.5 mg INH ONETIME PRN PRN Reason: bronchodilation Albuterol (Proventil Hfa) 1 - 2 gm INH Q4H PRN PRN Reason: Shortness of Breath Diphenhydramine HCl (Benadryl) 25 mg PO Q6H PRN PRN Reason: Itching Last Admin: 05/08/20 20:37 Dose: 25 mg Documented by: Nalbuphine HCl (Nubain) 5 mg IVPUSH Q3H PRN PRN Reason: Pain Last Admin: 05/09/20 00:09 Dose: 5 mg Documented by: Non-Formulary Medication (Bupropion) 100 mg PO DAILY [facility] Ondansetron HCl (Zofran) 4 mg IVPUSH Q8H PRN PRN Reason: Nausea Setraline 100mg Tab (Own Med) 0 each PO BEDTIME TERRENCE Last Admin: 05/08/20 21:56 Dose: Not Given Documented by: Quetiapine 300mg Tab (Own Med) 0 each PO BEDTIME TERRENCE Last Admin: 05/08/20 21:57 Dose: Not Given Documented by: Prazosin HCl (Minpress) 0 mg PO BEDTIME TERRENCE Last Admin: 05/08/20 21:24 Dose: Not Given Documented by: Tramadol HCl (Ultram) 50 mg PO Q6H PRN PRN Reason: Pain Last Admin: 05/09/20 04:38 Dose: 50 mg Documented by: Discontinued Medications Albuterol (Proventil Neb Soln) 2.5 mg NEB ONETIME ONE Stop: 05/08/20 13:55 Last Admin: 05/08/20 14:39 Dose: 2.5 mg Documented by: Bupivacaine HCl (Marcaine 0.5%) Confirm Administered Dose 30 ml .ROUTE .STK-MED ONE Stop: 05/08/20 14:21 Last Admin: 05/08/20 15:59 Dose: 7 ml Documented by: Bupivacaine HCl/Epinephrine Bitart (Marcaine 0.5%/Epinephrine 1:200,000) Confirm Administered Dose 50 ml .ROUTE .STK-MED ONE Stop: 05/08/20 16:42 Last Admin: 05/08/20 17:07 Dose: 20 ml Documented by: Clindamycin Phosphate (Cleocin) Confirm Administered Dose 900 mg .ROUTE .STK-MED ONE Stop: 05/08/20 16:08 Dexamethasone (Dexamethasone) Confirm Administered Dose 20 mg .ROUTE .STK-MED ONE Stop: 05/08/20 14:07 Fentanyl (Sublimaze) Confirm Administered Dose 250 mcg .ROUTE .STK-MED ONE Stop: 05/08/20 14:07 Fentanyl (Sublimaze) 50 mcg IVPUSH Q5M PRN PRN Reason: Pain Stop: 05/08/20 23:00 Last Admin: 05/08/20 18:10 Dose: 50 mcg Documented by: Glycopyrrolate () Confirm Administered Dose 1 mg .ROUTE .STK-MED ONE Stop: 05/08/20 16:58 Hydromorphone HCl (Dilaudid) Confirm Administered Dose 0.5 mg .ROUTE .STK-MED ONE Stop: 05/08/20 15:53 Hydromorphone HCl (Dilaudid) 0.5 mg IVPUSH Q10M PRN PRN Reason: Pain (severe 7-10) Stop: 05/08/20 23:00 Lactated Ringer's (Ringers, Lactated) 1,000 mls @ 125 mls/hr IV ASDIRECTED TERRENCE Stop: 05/08/20 23:00 Last Admin: 05/08/20 14:20 Dose: 125 mls/hr Documented by: Lidocaine HCl (Xylocaine-Mpf 1%) Confirm Administered Dose 4 mls @ as directed .ROUTE .STK-MED ONE Stop: 05/08/20 14:06 Lactated Ringer's (Ringers, Lactated) Confirm Administered Dose 1,000 mls @ as directed .ROUTE .STK-MED ONE Stop: 05/08/20 14:06 Gentamicin Sulfate 340 mg/ (Dextrose/Water) 108.5 mls @ 108.5 mls/hr IV ONETIME ONE Stop: 05/08/20 17:14 Last Admin: 05/08/20 20:26 Dose: Not Given Documented by: Ketamine HCl (Ketalar) Confirm Administered Dose 500 mg .ROUTE .STK-MED ONE Stop: 05/08/20 16:14 Ketorolac Tromethamine (Toradol) Confirm Administered Dose 15 mg .ROUTE .STK-MED ONE Stop: 05/08/20 16:31 Lidocaine/Epinephrine (Xylocaine 1% With Epinephrine 1:100,000) Confirm Administered Dose 20 ml .ROUTE .STK-MED ONE Stop: 05/08/20 16:42 Last Admin: 05/08/20 17:07 Dose: 20 ml Documented by: Lidocaine/Sodium Bicarbonate (Buffered Lidocaine 1% In Ns 8.4%) 0.25 ml IDERM ONETIME PRN PRN Reason: Prior to IV Start Stop: 05/08/20 23:00 Last Admin: 05/08/20 14:20 Dose: 0.25 ml Documented by: Midazolam HCl (Versed 1 Mg/Ml) Confirm Administered Dose 2 mg .ROUTE .STK-MED ONE Stop: 05/08/20 14:07 Neostigmine Methylsulfate (Neostigmine Methylsulfate) Confirm Administered Dose 5 mg .ROUTE .STK-MED ONE Stop: 05/08/20 16:58 Ondansetron HCl (Zofran) Confirm Administered Dose 4 mg .ROUTE .STK-MED ONE Stop: 05/08/20 14:06 Ondansetron HCl (Zofran) 4 mg IVPUSH ONETIME PRN PRN Reason: Nausea/Vomiting Stop: 05/08/20 23:00 Prazosin HCl (Minpress) 1 mg PO BEDTIME TERRENCE Propofol (Diprivan 20 Ml) Confirm Administered Dose 400 mg .ROUTE .STK-MED ONE Stop: 05/08/20 14:07 Propofol (Diprivan 20 Ml) Confirm Administered Dose 200 mg .ROUTE .STK-MED ONE Stop: 05/08/20 17:14 Quetiapine Fumarate (Seroquel) 300 mg PO BEDTIME [facility] Last Admin: 05/09/20 07:05 Dose: Not Given Documented by: Rocuronium [place] (Zemuron) Confirm Administered Dose 50 mg .ROUTE .STK-MED ONE Stop: 05/08/20 14:06 Sertraline HCl (Zoloft) 100 mg PO BEDTIME [facility] Last Admin: 05/09/20 07:05 Dose: Not Given Documented by: Sodium Chloride (Saline Flush) 10 ml FLUSH ASDIRECTED PRN PRN Reason: Keep Vein Open Stop: 05/08/20 23:00
[2020-05-09] MEDS ORDERED: buPROPion 100 MG Tab.SR PO SCH (09:00)
[2020-05-09 09:09] VITALS: BP 110/77; PULSE 98
[2020-05-09] MEDS ORDERED: QUEtiapine 100 MG Tab PO SCH (21:00)
== END 2020-05-09 09:50 | disposition home or self-care (01) ==
LOC: JD.SDS 13:58 → JD.OB 19:34 → JD.SDS 05-09 09:50
PROVIDERS: ATTEND Obstetrics & Gynecology
DX: K35.33 Acute appendicitis with perforation, localized peritonitis, and gangrene, with abscess (principal); N73.6 Female pelvic peritoneal adhesions (postinfective); J45.909 Unspecified asthma, uncomplicated; F41.9 Anxiety disorder, unspecified; F32.9 Major depressive disorder, single episode, unspecified; F43.10 Post-traumatic stress disorder, unspecified; F17.210 Nicotine dependence, cigarettes, uncomplicated; H81.09 Meniere's disease, unspecified ear; Z79.899 Other long term (current) drug therapy; Z91.041 Radiographic dye allergy status; Z88.0 Allergy status to penicillin; Z91.030 Bee allergy status
CPT/HCPCS: 36415; 44970; 58661; 86850; 86900; 86901; 88305; 94640; A9270; J1100; J1170; J1885; J2001; J2250; J2300; J2405; J2704; J2710; J3010; J3490; J7120; 00840

== ENCOUNTER 2020-05-30 10:49 | Day surgery (SDC) | payer BC, MEDICAID ==
[~2020-05-30 10:49] MED LIST changes: -Albuterol 0.083% 2.5 MG/3 ML Neb Soln NEB ONE; +Lactated Ringers 1,000 ML IV SCH; -Sodium Chloride 0.9% 10 ML Syringe FLUSH PRN
[2020-05-30] MEDS ORDERED: Bupivacaine 0.5%/EPINEPHrine 1:200,000 50 ML MDV ONE (11:20)
--- NOTE | 2020-05-30 11:28 | PCM.PREANE ---
Preanesthetic Assessment - Procedure Proposed Procedure: diagnostic laparoscopy - Anesthesia/Transfusion/Family Hx Anesthesia History: Prior Anesthesia Without Reaction Family History of Anesthesia Reaction: No Transfusion History: No Prior Transfusion(s) Intubation History: Unknown - Review of Systems General: No Symptoms Pulmonary: No Symptoms Cardiovascular: No Symptoms Gastrointestinal: Abdominal Pain (right lower abd) Neurological: No Symptoms Other: Reports: Anxiety - Physical Assessment NPO Status Date: 05/29/20 NPO Status Time: 00:00 Height: 1.78 m Weight: 67.585 kg ASA Class: 2 Mental Status: Alert & Oriented x3 Dentition: Reports: Partial, [place](s) Thyro-Mental Finger Breadths: 3 Mouth Opening Finger Breadths: 3 ROM/Head Extension: Full Lungs: Clear to Auscultation, Normal Respiratory Effort Cardiovascular: Regular Rate, Regular Rhythm - Allergies Allergies/Adverse Reactions: Allergies Allergy/AdvReac Type Severity Reaction Status Date / Time iodine Allergy Hives Verified 05/29/20 15:21 Penicillins Allergy Swelling Verified 05/08/20 15:00 adhesive tape Allergy Blisters Uncoded 05/08/20 15:00 Bee sting Allergy Anaphylactic Uncoded 05/08/20 15:00 Shock - Blood Blood Available: No Product(s) Available: None - Anesthesia Plan Pre-Op Medication Ordered: None - Acknowledgements Anesthesia Type Planned: General Anesthesia Pt an Appropriate Candidate for the Planned Anesthesia: Yes Alternatives and Risks of Anesthesia Discussed w Pt/Guardian: Yes Pt/Guardian Understands and Agrees with Anesthesia Plan: Yes PreAnesthesia Questionnaire HEENT History: Reports: Hard of Hearing, Impaired Vision, Other (See Below) Other HEENT History: Meniere's disease Cardiovascular History: Reports: None Respiratory History: Reports: Asthma Gastrointestinal History: Reports: None Genitourinary History: Reports: Renal Calculus 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: , 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 Other OB/BYN History: h/o demise Musculoskeletal History: Reports: None Neurological History: Reports: Head Trauma, Migraines, Neuropathy, Peripheral, Vertigo Other Neuro History: Meneris disease Psychiatric History: Reports: Anxiety, Depression, PTSD Endocrine/Metabolic History: Reports: None Hematologic History: Reports: None Immunologic History: Reports: None Oncologic (Cancer) History: Reports: Cervix Dermatologic History: Reports: None - Infectious Disease History Infectious Disease History: Reports: None - Past Surgical History HEENT Surgical History: Reports: Oral Surgery GI Surgical History: Reports: Other (See Below) Other GI Surgeries/Procedures: superior mesenteric artery syndrome, lap jejunostomy Female Surgical History: Reports: Cystectomy, D&C - SUBSTANCE USE Smoking Status *Q: Current Every Day Smoker Tobacco Use Within Last Twelve Months: Cigarettes Second Hand Smoke Exposure: Yes Days Per Week of Alcohol Use: 1 Number of Drinks Per Day: 0 Total Drinks Per Week: 0 Recreational Drug Use History: No - HOME MEDS Home Medications: Home Meds Prazosin [Minpress] 1 mg PO BEDTIME 06/09/18 [History] No122/Iron/Folic Acid [ Multi Tablet] 1 tab PO DAILY 06/09/18 [History] Sertraline [Zoloft] 250 mg PO BEDTIME 06/09/18 [History] Albuterol Sulfate [Albuterol Sulfate Hfa] 1 - 2 puff INH Q4H PRN 04/23/20 [History] QUEtiapine Fumarate [Seroquel] 250 mg PO BEDTIME 04/23/20 [History] buPROPion [Wellbutrin] 100 mg PO DAILY 04/23/20 [History] Ibuprofen [Motrin] 600 mg PO Q4H PRN tablet 04/24/20 [Rx] Acetaminophen/oxyCODONE [Percocet 325-5 MG] 2 tab PO Q4H PRN tablet 04/26/20 [Rx] Albuterol [Proventil Neb Soln] 2.5 mg NEB ONETIME PRN neb 04/26/20 [Rx] estradioL [Estrace] 1 mg PO DAILY #30 tablet 05/09/20 [Rx] traMADol [Ultram] 50 mg PO Q6H PRN tablet 05/09/20 [Rx] - CURRENT (IN HOUSE) MEDS Current Meds: Current Medications Discontinued Medications Bupivacaine HCl/Epinephrine Bitart (Marcaine 0.5%/Epinephrine 1:200,000) Confirm Administered Dose 50 ml .ROUTE .STK-MED ONE Stop: 05/30/20 11:21
--- NOTE | 2020-05-30 11:31 | PCM.HP.2 ---
H&P History of Present Illness - General Date of Service: 05/30/20 Source of Information: Patient History Limitations: Reports: No Limitations - History of Present Illness Initial Comments - Free Text/Narative: Mrs. Cohen is a 34 yo woman who presents with right lower quadrant pain. She had a laparoscopic hystectomy 6 weeks ago for menorrhagia with Dr. Beltrán, and had to go back to the OR two days later for hemoperitoneum attributable to a hemorrhagic ovarian cyst. Partial oophorectomy was performed, but the patient had persistent pain and went to the OR two weeks later for bilateral oophorectomy with Dr. Funk. In the OR, the appendix appeared inflamed at the tip and so Dr. Barnes was called in to perform appendectomy. The patient felt better after her operation for about two weeks, but for the past week has had severe, worsening right lower quadrant pain. She denies fever. Bowel movements are normal. She reports history of easy bruising. Recent lab work shows anemia, though this is improving since a few weeks ago. No WBC. CT scan shows some abnormal inflammatory changes in the right lower quadrant but no organized fluid collection. - Related Data Allergies/Adverse Reactions: Allergies Allergy/AdvReac Type Severity Reaction Status Date / Time iodine Allergy Hives Verified 05/29/20 15:21 Penicillins Allergy Swelling Verified 05/08/20 15:00 adhesive tape Allergy Blisters Uncoded 05/08/20 15:00 Bee sting Allergy Anaphylactic Uncoded 05/08/20 15:00 Shock Home Medications: Home Meds Prazosin [Minpress] 1 mg PO BEDTIME 06/09/18 [History] No122/Iron/Folic Acid [ Multi Tablet] 1 tab PO DAILY 06/09/18 [History] Sertraline [Zoloft] 250 mg PO BEDTIME 06/09/18 [History] Albuterol Sulfate [Albuterol Sulfate Hfa] 1 - 2 puff INH Q4H PRN 04/23/20 [History] QUEtiapine Fumarate [Seroquel] 250 mg PO BEDTIME 04/23/20 [History] buPROPion [Wellbutrin] 100 mg PO DAILY 04/23/20 [History] Ibuprofen [Motrin] 600 mg PO Q4H PRN tablet 04/24/20 [Rx] Acetaminophen/oxyCODONE [Percocet 325-5 MG] 2 tab PO Q4H PRN tablet 04/26/20 [Rx] Albuterol [Proventil Neb Soln] 2.5 mg NEB ONETIME PRN neb 04/26/20 [Rx] estradioL [Estrace] 1 mg PO DAILY #30 tablet 05/09/20 [Rx] traMADol [Ultram] 50 mg PO Q6H PRN tablet 05/09/20 [Rx] Past Medical History HEENT History: Reports: Hard of Hearing, Impaired Vision, Other (See Below) Other HEENT History: Meniere's disease Cardiovascular History: Reports: None Respiratory History: Reports: Asthma Gastrointestinal History: Reports: None Genitourinary History: Reports: Renal Calculus 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: , 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 Other OB/BYN History: h/o demise Musculoskeletal History: Reports: None Neurological History: Reports: Head Trauma, Migraines, Neuropathy, Peripheral, Vertigo Other Neuro History: Meneris disease Psychiatric History: Reports: Anxiety, Depression, PTSD Endocrine/Metabolic History: Reports: None Hematologic History: Reports: None Immunologic History: Reports: None Oncologic (Cancer) History: Reports: Cervix Dermatologic History: Reports: None - Infectious Disease History Infectious Disease History: Reports: None - Past Surgical History HEENT Surgical History: Reports: Oral Surgery GI Surgical History: Reports: Other (See Below) Other GI Surgeries/Procedures: superior mesenteric artery syndrome, lap jejunostomy Female Surgical History: Reports: Cystectomy, D&C Social & Family History - Family History Family Medical History: Noncontributory - Caffeine Use Caffeine Use: Reports: Coffee - Living Situation & Occupation Living situation: Reports: , with Significant Other, with Family Occupation: Employed H&P Review of Systems - Review of Systems: Review Of Systems: See Below General: Reports: Malaise, Decreased Appetite HEENT: Reports: No Symptoms Pulmonary: Reports: No Symptoms Cardiovascular: Reports: No Symptoms Gastrointestinal: Reports: Abdominal Pain, Diarrhea Genitourinary: Reports: No Symptoms Musculoskeletal: Reports: No Symptoms Skin: Reports: No Symptoms Psychiatric: Reports: No Symptoms Neurological: Reports: No Symptoms Hematologic/Lymphatic: Reports: Anemia, Easy Bleeding, Easy Bruising Immunologic: Reports: No Symptoms Exam - Exam Exam: See Below Problem List Initiated/Reviewed/Updated: Yes Orders Last 24hrs: Active Orders 24 hr Category Date Time Status CORONAVIRUS COVID-19 CAYDEN [MOLEC] Stat Lab 05/30/20 10:49 Received Assessment/Plan Comment:: Recurrent severe RLQ pain after recent pelvic surgery including appendectomy, with inflammatory changes noted on CT scan. Plan to check PT/INR and PTT today. Discussed expectant management vs diagnostic laparoscopy but patient is eager to get to the bottom of things and would like to proceed with diagnostic laparoscopy, which I think is reasonable given abnormal CT findings. - Mortality Measure Prognosis:: Good
[2020-05-30] MEDS ORDERED: Midazolam 1 MG/ML 2 ML SDV ONE (11:43)
[2020-05-30] MEDS ORDERED: fentaNYL 100 MCG/2 ML SDV ONE ×2 (11:44→12:34)
[2020-05-30] MEDS ORDERED: Propofol 200 MG/20 ML SDV ONE (11:45)
[2020-05-30] MEDS ORDERED: Lidocaine 1% 4 ML ONE (11:47)
[2020-05-30] MEDS ORDERED: Rocuronium 50 MG/5 ML Vial ONE (11:47)
[2020-05-30] MEDS ORDERED: Ondansetron 4 MG/2 ML SDV ONE (11:48)
[2020-05-30] MEDS ORDERED: Dexamethasone 4 MG/ML 5 ML MDV ONE (11:48)
[2020-05-30] MEDS ORDERED: Ketamine 500 mg/10 ML MDV ONE (11:50)
[2020-05-30] MEDS ORDERED: Sodium Chloride 0.9% 10 ML Syringe FLUSH PRN (12:14)
[2020-05-30] MEDS ORDERED: ceFAZolin 1 GM Vial ONE (12:27)
[2020-05-30] MEDS ORDERED: Lactated Ringers 1,000 ML ONE (12:29)
[2020-05-30] MEDS ORDERED: HYDROmorphone 0.5 MG/0.5 ML Syringe ONE (12:50)
[2020-05-30] MEDS ORDERED: Ketorolac 30 MG/ML SDV ONE (13:04)
[2020-05-30] MEDS ORDERED: HYDROmorphone 0.5 MG/0.5 ML Syringe IVPUSH PRN (13:34)
[2020-05-30] MEDS ORDERED: Ondansetron 4 MG/2 ML SDV IVPUSH PRN (13:34)
[2020-05-30] MEDS ORDERED: fentaNYL 100 MCG/2 ML SDV IVPUSH PRN (13:34)
--- NOTE | 2020-05-30 13:34 | PCM.POSTAN ---
POST ANESTHESIA ASSESSMENT - MENTAL STATUS Mental Status: Alert, Oriented - VITAL SIGNS Vital Signs: Last Vital Signs Temp 98.2 F 05/30/20 11:22 Pulse 83 05/30/20 11:22 Resp 16 05/30/20 11:22 BP 102/73 05/30/20 11:22 Pulse Ox 96 05/30/20 11:22 123/79 99% 104 13 98.2f - RESPIRATORY Respiratory Status: Respiratory Rate WNL, Airway Patent, O2 Saturation Stable, Supplemental Oxygen - CARDIOVASCULAR CV Status: Pulse Rate WNL, Blood Pressure Stable - GASTROINTESTINAL GI Status: No Symptoms - PAIN Pain Score: 0 - POST OP HYDRATION Hydration Status: Adequate & Stable
--- NOTE | 2020-05-30 14:07 | PCM48HPAN ---
Post Anesthesia Note - EVALUATION WITHIN 48HRS OF ANESTHETIC Vital Signs in Normal Range: Yes Patient Participated in Evaluation: Yes Respiratory Function Stable: Yes Airway Patent: Yes Cardiovascular Function Stable: Yes Hydration Status Stable: Yes Pain Control Satisfactory: Yes Nausea and Vomiting Control Satisfactory: Yes Mental Status Recovered: Yes Vital Signs: Last Vital Signs Temp 98.8 F 05/30/20 14:00 Pulse 76 05/30/20 14:00 Resp 14 05/30/20 14:00 BP 105/66 05/30/20 14:00 Pulse Ox 99 05/30/20 14:02 - COMMENTS/OBSERVATIONS Free Text/Narrative:: rests- complains of some discomfort
[2020-05-30] MEDS ORDERED: Ketorolac 30 MG/ML SDV IVPUSH ONE (14:15)
[2020-05-30 15:44] VITALS: BP 103/65; PULSE 88
--- NOTE | 2020-06-05 11:50 | PCM.PRNOTE ---
- Free Text/Narrative Note: Operative Report Operation: diagnostic laparoscopy, adhesiolysis, surgical drainage of abscess Date: 05/30/2020 Attending Surgeon: Jose Magana MD Indication for Surgery: severe right lower quadrant pain weeks after appendectomy with abnormal inflammatory changes noted on CT scan Preoperative antibiotics: 2 g cefoxitin IV VTE prophylaxis: SCDs Estimated Blood Loss: 20 cc Findings: Dense adhesions in the pelvis and right lower quadrant. There was a small walled-off abscess near the appendiceal staple lines with surrounding necrotic debris. Detailed Report: The patient underwent general endotracheal anesthesia after being placed supine on the operating table. Time out was performed, confirming the patients identity and the operation to be performed. The left arm was tucked at the patients side. The abdomen was prepped and draped in sterile fashion. A Veress needle was inserted into the abdominal cavity below the left costal margin along the mid-clavicular line. The abdomen was insufflated with CO2 to 15 mm Hg. Gas was aspirated below the umbilicus with a syringe in order to ensure safe placem ent of a 12 mm bladed laparoscopic port. The 5mm 30 degree laparoscope was then inserted and viscera inspected. A minor liver puncture was sustained from Veress placement; this appeared hemostatic on inspection. Two additional 5 mm ports were placed under direct vision with the laparoscope one along the midline superior to the pubic symphysis and one in the left lower quadrant. The laparoscope was then placed through the left lower quadrant port for optimal visualization. There was no obvious pathology on initial inspection. There was a loop of small bowel densely adherent to the right aspect of the pelvis, close to the base of the cecum. The cecum was densely adherent to the lateral abdominal wall. Careful blunt dissection ensued, with occasional use of the laparoscopic jaison for sharp division of dense fibrotic tissue. As the cecum was mobilized medially, and abscess cavity was entered and a small amount of white purulent fluid was aspirated. The abscess cavity was drained completely, and some of the wall lining consisting of necrotic debris was removed and sent for pathologic analysis. There was some minor bleeding from the anterior abdominal wall where the ascending colon had been bluntly dissected. This was managed with monopolar energy. The pelvis was thoroughly suctioned. Omentum was tucked into the field of dissection. Pneumoperitoneum was then released and ports removed. All skin incisions were then closed with placement of subcuticular vicryl suture and dressed with dermabond. A total of 20 cc 0.5 % marcaine with epinephrine was used for local anesthesia at the incision sites. The patient tolerated the operation well, was extubated in the operating room and transferred to the PACU for routine post-anesthesia care.
== END 2020-05-30 15:38 | disposition home or self-care (01) ==
LOC: JD.SDS 10:49
PROVIDERS: ATTEND Surgery
DX: T81.43XA Infection following a procedure, organ and space surgical site, initial encounter (principal); K66.0 Peritoneal adhesions (postprocedural) (postinfection); J45.909 Unspecified asthma, uncomplicated; F41.9 Anxiety disorder, unspecified; F32.9 Major depressive disorder, single episode, unspecified; F17.210 Nicotine dependence, cigarettes, uncomplicated; Z01.812 Encounter for preprocedural laboratory examination; Z20.828 Contact with and (suspected) exposure to other viral communicable diseases; Z88.0 Allergy status to penicillin; Z91.030 Bee allergy status; Z91.09 Other allergy status, other than to drugs and biological substances; Z88.8 Allergy status to other drugs, medicaments and biological substances; Z79.899 Other long term (current) drug therapy
CPT/HCPCS: 00840; J0690; J1100; J1170; J1885; J2001; J2250; J2405; J2704; J2710; J3010; J3490; J7120; U0002

== ENCOUNTER 2021-02-24 14:22 | Emergency (ER) | payer BC, MEDICAID ==
[2021-02-24 14:30] VITALS: BP 134/98; PULSE 88
[2021-02-24] MEDS ORDERED: Sodium Chloride 0.9% 1,000 ML IV ONE ×2 (14:39→15:55)
[2021-02-24] MEDS ORDERED: Sodium Chloride 0.9% 10 ML Syringe FLUSH PRN (14:39)
[2021-02-24] MEDS ORDERED: Ketorolac 30 MG/ML SDV IVPUSH ONE (14:39)
[2021-02-24] MEDS ORDERED: Ondansetron 4 MG/2 ML SDV IVPUSH ONE (14:40)
[2021-02-24] MEDS ORDERED: HYDROmorphone 1 MG/ML Syringe IVPUSH ONE (15:17)
--- NOTE | 2021-02-24 15:49 | EDM.PDOC ---
ED HPI GENERAL MEDICAL PROBLEM - General Chief Complaint: Flank Pain Stated Complaint: KIDNEY PAIN HX OF KIDNEY STONES Time Seen by Provider: 02/24/21 14:30 Source of Information: Reports: Patient History Limitations: Reports: No Limitations - History of Present Illness INITIAL COMMENTS - FREE TEXT/NARRATIVE: 35-year-old female presents the emergency department complaints of right flank pain. Patient states she does have a history of kidney stones in the past and reports that this feels like she is having kidney stones again. She states that the discomfort started last evening she did try to take Tylenol for the discomfort. She states it did not help much as she was up most of the night with right flank pain. She presents today and as she ambulates back to her room her gait is hunched over and she is holding her right flank area. She denies any abdominal pain or radiation of the flank pain into her right groin. She denies any recent fever, chills, vomiting or diarrhea. She has been nauseated. She denies urinary symptoms however she states she is only able to go small frequent amounts. She denies any hira red blood noted in her urine. Right Flank Pain Score (Numeric/FACES): 9 - Related Data Allergies Allergy/AdvReac Type Severity Reaction Status Date / Time iodine Allergy Hives Verified 02/24/21 14:30 Penicillins Allergy Swelling Verified 02/24/21 14:30 adhesive tape Allergy Blisters Uncoded 02/24/21 14:30 Bee sting Allergy Anaphylactic Uncoded 02/24/21 14:30 Shock Home Meds: Home Meds Prazosin [Minpress] 1 mg PO BEDTIME 06/09/18 [History] No122/Iron/Folic Acid [ Multi Tablet] 1 tab PO DAILY 06/09/18 [History] Sertraline [Zoloft] 250 mg PO BEDTIME 06/09/18 [History] Albuterol Sulfate [Albuterol Sulfate Hfa] 1 - 2 puff INH Q4H PRN 04/23/20 [History] QUEtiapine Fumarate [Seroquel] 250 mg PO BEDTIME 04/23/20 [History] buPROPion [Wellbutrin] 100 mg PO DAILY 04/23/20 [History] Ibuprofen [Motrin] 600 mg PO Q4H PRN tablet 04/24/20 [Rx] Acetaminophen/oxyCODONE [Percocet 325-5 MG] 2 tab PO Q4H PRN tablet 04/26/20 [Rx] Albuterol [Proventil Neb Soln] 2.5 mg NEB ONETIME PRN neb 04/26/20 [Rx] estradioL [Estrace] 1 mg PO DAILY #30 tablet 05/09/20 [Rx] Past Medical History HEENT History: Reports: Hard of Hearing, Impaired Vision, Other (See Below) Other HEENT History: Meniere's disease Cardiovascular History: Reports: None Respiratory History: Reports: Asthma Gastrointestinal History: Reports: None Other Gastrointestinal History: right lower abdominal pain Genitourinary History: Reports: Renal Calculus CLAM SORTER History: Reports: , Spontaneous Other CLAM SORTER History: h/o demise Musculoskeletal History: Reports: None Neurological History: Reports: Head Trauma, Migraines, Neuropathy, Peripheral, Vertigo Other Neuro History: Meneris disease Psychiatric History: Reports: Anxiety, Depression, PTSD Endocrine/Metabolic History: Reports: None Hematologic History: Reports: None Immunologic History: Reports: None Oncologic (Cancer) History: Reports: Cervix Dermatologic History: Reports: None - Infectious Disease History Infectious Disease History: Reports: None - Past Surgical History Head Surgeries/Procedures: Reports: None HEENT Surgical History: Reports: Oral Surgery Cardiovascular Surgical History: Reports: None Respiratory Surgical History: Reports: None GI Surgical History: Reports: Other (See Below) Other GI Surgeries/Procedures: superior mesenteric artery syndrome, lap jejunostomy Female Surgical History: Reports: Cystectomy, D&C Endocrine Surgical History: Reports: None Neurological Surgical History: Reports: None Musculoskeletal Surgical History: Reports: Other (See Below) Other Musculoskeletal Surgeries/Procedures:: foot surgery 2005. right knee surgery 2009 Oncologic Surgical History: Reports: None Dermatological Surgical History: Reports: None Social & Family History - Family History Family Medical History: No Pertinent Family History - Tobacco Use Tobacco Use Status *Q: Current Every Day Tobacco User Years of Tobacco use: 20 Packs/Tins Daily: 0.2 - Caffeine Use Caffeine Use: Reports: Coffee - Recreational Drug Use Recreational Drug Use: No - Living Situation & Occupation Living situation: Reports: , with Significant Other, with Family Occupation: Employed ED ROS GENERAL - Review of Systems Review Of Systems: Comprehensive ROS is negative, except as noted in HPI. ED EXAM, RENAL/ - Physical Exam Exam: See Below Exam Limited By: No Limitations General Appearance: Alert, WD/WN, Moderate Distress (She is crying due to right flank pain) Ears: Normal External Exam, Hearing Grossly Normal Nose: Normal Inspection, Normal Mucosa Throat/Mouth: Normal Inspection, Normal Lips, Normal Voice, No Airway Compromise Head: Atraumatic, Normocephalic Neck: Normal Inspection, Supple Respiratory/Chest: No Respiratory Distress, Lungs Clear, Normal Breath Sounds, No Accessory Muscle Use, Chest Non-Tender Cardiovascular: Normal Peripheral Pulses, Regular Rate, Rhythm, No Edema, No Murmur GI/Abdominal: Normal Bowel Sounds, Soft, Non-Tender, No Distention (Female) Exam: Deferred Rectal (Female) Exam: Deferred Back Exam: Normal Inspection, Full Range of Motion, CVA Tenderness (R). No: CVA Tenderness (L) Extremities: Normal Inspection Neurological: Alert, Oriented, Normal Cognition Psychiatric: Tearful Skin Exam: Warm, Dry, Intact, Normal Color, No Rash Lymphatic: No Adenopathy Course - Vital Signs Text/Narrative:: Patient presents with right flank pain and a history of kidney stones in the past. She states this feels identical to when she has had kidney stones in the past. I have ordered labs to include a CBC, CMP, urinalysis with micro and culture if indicated. I have also ordered a urine test. Once this comes back as negative, I will order a CT of the abdomen and pelvis without contrast stone protocol to rule out kidney stone. Patient will also be given 1 L of normal saline bolus and 30 mg of IV Toradol for the pain. I have also ordered for her to receive Zofran 4 mg IV for nausea. Last Recorded V/S: Last Vital Signs Temp 97.7 F 02/24/21 14:29 Pulse 88 02/24/21 14:29 Resp 16 02/24/21 14:29 BP 134/98 H 02/24/21 14:29 Pulse Ox 96 02/24/21 14:29 - Orders/Labs/Meds Orders: Active Orders 24 hr Category Date Time Status Abdomen Pelvis wo Cont [CT] Stat Exams 02/24/21 15:18 Taken Sodium Chloride 0.9% [Saline Flush] Med 02/24/21 14:39 Active 10 ml FLUSH ASDIRECTED PRN Saline Lock Insert [OM.PC] Stat Oth 02/24/21 14:39 Ordered Medication Orders Sodium Chloride (Sodium Chloride 0.9% 10 Ml Syringe) 10 ml FLUSH ASDIRECTED PRN PRN Reason: Keep Vein Open Last Admin: 02/24/21 14:45 Dose: 10 ml Documented by: TONIO Labs: Laboratory Tests 02/24/21 02/24/21 02/24/21 Range/Units 14:40 14:40 14:40 WBC 3.81 L (3.98-10.04) K/mm3 RBC 3.60 L (3.98-5.22) M/mm3 Hgb 12.3 (11.2-15.7) gm/dl Hct 37.6 (34.1-44.9) % MCV 104.4 H D (79.4-94.8) fl MCH 34.2 H (25.6-32.2) pg MCHC 32.7 (32.2-35.5) g/dl RDW Std Deviation 48.0 H (36.4-46.3) fL Plt Count 264 (182-369) K/mm3 MPV 9.4 (9.4-12.3) fl Neut % (Auto) 45.4 (34.0-71.1) % Lymph % (Auto) 40.2 (19.3-51.7) % [place] % (Auto) 8.9 (4.7-12.5) % Eos % (Auto) 5.2 (0.7-5.8) Baso % (Auto) 0.3 (0.1-1.2) % Neut # (Auto) 1.73 (1.56-6.13) K/mm3 Lymph # (Auto) 1.53 (1.18-3.74) K/mm3 [place] # (Auto) 0.34 (0.24-0.36) K/mm3 Eos # (Auto) 0.20 (0.04-0.36) K/mm3 Baso # (Auto) 0.01 (0.01-0.08) K/mm3 Sodium (136-145) mEq/L Potassium (3.5-5.1) mEq/L Chloride (98-107) mEq/L Carbon Dioxide (21-32) mEq/L Anion Gap (5-15) BUN (7-18) mg/dL Creatinine (0.55-1.02) mg/dL Est Cr Clr Drug Dosing Estimated GFR (MDRD) (>60) mL/min BUN/Creatinine Ratio (14-18) Glucose (70-99) mg/dL Calcium (8.5-10.1) mg/dL Total Bilirubin (0.2-1.0) mg/dL AST (15-37) U/L ALT (14-59) U/L Alkaline Phosphatase (46-116) U/L Total Protein (6.4-8.2) g/dl Albumin (3.4-5.0) g/dl Globulin gm/dL Albumin/Globulin Ratio (1-2) Urine Color Yellow (Yellow) Urine Appearance Clear (Clear) Urine pH 6.0 (5.0-8.0) Ur Specific [place] > or = 1.030 (1.005-1.030) Urine Protein Negative (Negative) Urine Glucose (UA) Negative (Negative) Urine Ketones Negative (Negative) Urine Occult Blood 2+ H (Negative) Urine Nitrite Negative (Negative) Urine Bilirubin Negative (Negative) Urine Urobilinogen 0.2 (0.2-1.0) Ur Leukocyte Esterase Negative (Negative) Urine RBC 20-30 H (0-5) /hpf Urine WBC 0-5 (0-5) /hpf Ur Epithelial Cells 5-10 H (0-5) /hpf Urine Bacteria Few (FEW) /hpf Urine Mucus Many H (FEW) /hpf Urine HCG, Qual Negative (NEGATIVE) 02/24/21 Range/Units 14:40 WBC (3.98-10.04) K/mm3 RBC (3.98-5.22) M/mm3 Hgb (11.2-15.7) gm/dl Hct (34.1-44.9) % MCV (79.4-94.8) fl MCH (25.6-32.2) pg MCHC (32.2-35.5) g/dl RDW Std Deviation (36.4-46.3) fL Plt Count (182-369) K/mm3 MPV (9.4-12.3) fl Neut % (Auto) (34.0-71.1) % Lymph % (Auto) (19.3-51.7) % [place] % (Auto) (4.7-12.5) % Eos % (Auto) (0.7-5.8) Baso % (Auto) (0.1-1.2) % Neut # (Auto) (1.56-6.13) K/mm3 Lymph # (Auto) (1.18-3.74) K/mm3 [place] # (Auto) (0.24-0.36) K/mm3 Eos # (Auto) (0.04-0.36) K/mm3 Baso # (Auto) (0.01-0.08) K/mm3 Sodium 143 (136-145) mEq/L Potassium 4.2 (3.5-5.1) mEq/L Chloride 105 (98-107) mEq/L Carbon Dioxide 24 (21-32) mEq/L Anion Gap 18.2 H (5-15) BUN 20 H (7-18) mg/dL Creatinine 0.9 (0.55-1.02) mg/dL Est Cr Clr Drug Dosing TNP Estimated GFR (MDRD) > 60 (>60) mL/min BUN/Creatinine Ratio 22.2 H (14-18) Glucose 96 (70-99) mg/dL Calcium 9.0 (8.5-10.1) mg/dL Total Bilirubin 0.3 (0.2-1.0) mg/dL AST 19 (15-37) U/L ALT 25 (14-59) U/L Alkaline Phosphatase 56 (46-116) U/L Total Protein 7.8 (6.4-8.2) g/dl Albumin 4.7 (3.4-5.0) g/dl Globulin 3.1 gm/dL Albumin/Globulin Ratio 1.5 (1-2) Urine Color (Yellow) Urine Appearance (Clear) Urine pH (5.0-8.0) Ur Specific [place] (1.005-1.030) Urine Protein (Negative) Urine Glucose (UA) (Negative) Urine Ketones (Negative) Urine Occult Blood (Negative) Urine Nitrite (Negative) Urine Bilirubin (Negative) Urine Urobilinogen (0.2-1.0) Ur Leukocyte Esterase (Negative) Urine RBC (0-5) /hpf Urine WBC (0-5) /hpf Ur Epithelial Cells (0-5) /hpf Urine Bacteria (FEW) /hpf Urine Mucus (FEW) /hpf Urine HCG, Qual (NEGATIVE) Meds: Medications Generic Name Dose Route Start Last Admin Trade Name Freq PRN Reason Stop Dose Admin Sodium Chloride 10 ml 02/24/21 14:39 02/24/21 14:45 Sodium Chloride 0.9% 10 Ml Syringe FLUSH 10 ml ASDIRECTED PRN Administration Keep Vein Open Discontinued Medications Generic Name Dose Route Start Last Admin Trade Name Arlyn PRN Reason Stop Dose Admin Hydromorphone HCl 1 mg 02/24/21 15:17 02/24/21 15:27 Hydromorphone 1 Mg/Ml Syringe IVPUSH 02/24/21 15:18 1 mg ONETIME ONE Administration Hydromorphone HCl 0.5 mg 02/24/21 16:08 02/24/21 16:12 Hydromorphone 0.5 Mg/0.5 Ml Syringe IVPUSH 02/24/21 16:09 0.5 mg ONETIME ONE Administration Sodium Chloride 1,000 mls @ 999 mls/hr 02/24/21 14:39 02/24/21 14:45 Normal Saline IV 02/24/21 15:39 999 mls/hr ONETIME ONE Administration Sodium Chloride 1,000 mls @ 999 mls/hr 02/24/21 15:55 02/24/21 16:12 Normal Saline IV 02/24/21 16:55 999 mls/hr ONETIME ONE Administration Ketorolac Tromethamine 30 mg 02/24/21 14:39 02/24/21 14:45 Ketorolac 30 Mg/Ml Sdv IVPUSH 02/24/21 14:40 30 mg ONETIME ONE Administration Ondansetron HCl 4 mg 02/24/21 14:40 02/24/21 14:45 Ondansetron 4 Mg/2 Ml Sdv IVPUSH 02/24/21 14:41 4 mg ONETIME ONE Administration - Re-Assessments/Exams Free Text/Narrative Re-Assessment/Exam: 02/24/21 15:38 Hematology reveals a WBC of 3.81, hemoglobin 12.3, hematocrit 37.6, platelet count 264 Chemistry reveals a sodium of 143, potassium 4.2, anion gap 18.2, BUN 20, creatinine 0.9, glucose 96, total bilirubin 0.3, AST 19, ALT 25, alk phos 56 Urinalysis reveals 2+ occult blood, negative nitrite, negative leukocyte Estrace, 20-30 RBC, 0-5 WBC, 5-10 urine epithelial cells, urine hCG qualitative is negative I have ordered for the patient have a CT of the abdomen and pelvis without contrast stone protocol. Patient is still having a fair amount of pain as reported by nursing staff so I have ordered for her to receive a milligram Dilaudid IV 02/24/21 16:07 Nursing staff informs me that patient is still having very significant amount of pain. I will give her another half milligram of Dilaudid. 02/24/21 16:[address] of the abdomen pelvis without contrast: The liver is normal in architecture, without suspicious abnormality. No calcified gallstones. No ductal dilation. The pancreatic parenchyma is normal in bulk and sharply marginated. Duct is not dilated. No calcifications, masses, or abnormal fluid collections. Spleen is normal in size. No mass or fluid collection. There are no renal masses. Kidneys and ureters are normal in parenchymal bulk. No hydronephrosis or asymmetric perinephric stranding. No solid masses. No stones. Stomach and bowel show no significant abnormalities of the stomach. There are no dilated or thickened small bowel loops. Gas and stool are seen in the colon to the rectum. No mass. Appendix shows linear high density line along the base of the cecum is presumed to be a suture line. The appendix is not seen. There is no evidence for appendicitis. Intraperitoneal space shows no ascites. No abscess no inflammation within the intra-abdominal fat. No pneumoperitoneum. No mass. Vasculature shows no aneurysm. Lymph nodes there are no enlarged celiac, mesenteric, periportal, extraperitoneal or inguinal lymph nodes. Urinary bladder: There is no bladder wall thickening, mass or calculus. Reproductive the uterus is surgically absent. No adnexal masses. Bone and joints are age-appropriate. No acute fracture. No dislocat ion. There are no suspicious lytic or osteosclerotic lesions. Impression: No sign of acute intra-abdominal pathology. I discussed the results with the patient. She may have had a stone and passed it already. As she did have blood noted in her urine. I am going to allow her to receive another 500 mL of normal saline and then likely discharge her to home with recommendations that she follow-up with her primary care provider. 02/24/21 16:58 Pt states that she is feeling much better. She will be discharged to home with recommendations that she follow up with a primary care provider this week. Departure - Departure Time of Disposition: 16:59 Disposition: Home, Self-Care 01 Condition: Good Clinical Impression: Flank pain - Discharge Information Instructions: Flank Pain, Adult, [id number] Referrals: PCP,None [Primary Care Provider] - Forms: ED Department Discharge Additional Instructions: You were seen in the emergency department today with complaints of right flank pain. CT scan was completed which did not show any kidney stone or infective process in your abdomen. Labs were completed and this did not show anything that would indicate an infection. Your urine did show some blood so it is possible that you did have a kidney stone however passed it already. Recommend that you strain your urine. Also recommend a follow-up primary care provider sometime this week. A list of providers at the clinic have this been given to you. Should your condition worsen or change, do not hesitate returning to the emergency department. Sepsis Event Note (ED) - Evaluation Sepsis Screening Result: No Definite Risk - Focused Exam Vital Signs: Vital Signs Temp Pulse Resp BP Pulse Ox 02/24/21 14:29 97.7 F 88 16 134/98 H 96 - My Orders Last 24 Hours: My Active Orders 02/24/21 14:39 Sodium Chloride 0.9% [Saline Flush] 10 ml FLUSH ASDIRECTED PRN Saline Lock Insert [OM.PC] Stat 02/24/21 15:18 Abdomen Pelvis wo Cont [CT] Stat - Assessment/Plan Last 24 Hours: My Active Orders 02/24/21 14:39 Sodium Chloride 0.9% [Saline Flush] 10 ml FLUSH ASDIRECTED PRN Saline Lock Insert [OM.PC] Stat 02/24/21 15:18 Abdomen Pelvis wo Cont [CT] Stat
[2021-02-24] MEDS ORDERED: HYDROmorphone 0.5 MG/0.5 ML Syringe IVPUSH ONE (16:08)
--- NOTE | 2021-02-25 12:47 | CT ---
CT abdomen and pelvis Technique: Multiple axial sections were obtained from above the dome of the diaphragm inferiorly through the pubic symphysis. Intravenous and oral contrast was not utilized. Reconstructed coronal and sagittal images were obtained. Comparison: Prior CT abdomen and pelvis exam of 04/26/20. Findings: Visualized lung bases show nothing acute. Noncontrast appearance of the liver and spleen appear within normal limits. Adrenal glands show no nodule. Pancreas shows no discrete abnormality. Gallbladder contains no calcified gallstones. Kidneys show no abnormal calcifications. No ureteral dilatation or ureteral stone is seen. Abdominal aorta shows no aneurysm. No retroperitoneal adenopathy or mesenteric abnormalities are seen. Appendix is not visualized. There is surgical material being seen within the right lower quadrant. No pelvic mass or adenopathy is seen. No bowel dilatation is appreciated. Bone window settings were reviewed. No acute osseous abnormality is appreciated. Impression: 1. Nothing acute is seen on noncontrast CT study of the abdomen and pelvis. Diagnostic code #2 I agree with preliminary report from [facility], finalized on 02/24/21, 5:16 PM CDT, code 1
== END 2021-02-24 15:12 | disposition home or self-care (01) ==
LOC: JD.ED 14:22
DX: R10.9 Unspecified abdominal pain (principal); Z88.0 Allergy status to penicillin; Z88.8 Allergy status to other drugs, medicaments and biological substances; Z91.030 Bee allergy status; J45.909 Unspecified asthma, uncomplicated; Z79.899 Other long term (current) drug therapy; Z72.0 Tobacco use
CPT/HCPCS: 36415; 74176; 80053; 81001; 81025; 85025; 96374; 96375; 96376; 99284; J1170; J1885; J2405; J7030

== ENCOUNTER 2021-03-01 16:33 | Emergency (ER) | payer BC, MEDICAID ==
[2021-03-01 16:51] VITALS: BP 118/91; PULSE 122
[2021-03-01] MEDS ORDERED: HYDROmorphone 1 MG/ML Syringe IM ONE (17:21)
[2021-03-01] MEDS ORDERED: Ketorolac 60 MG/2 ML SDV IM ONE (17:22)
--- NOTE | 2021-03-01 17:28 | EDM.PDOC ---
ED HPI GENERAL MEDICAL PROBLEM - General Chief Complaint: Skin Complaint Stated Complaint: PT HAS SHINGLES/PAINFUL Time Seen by Provider: 03/01/21 16:43 Source of Information: Reports: Patient History Limitations: Reports: No Limitations - History of Present Illness INITIAL COMMENTS - FREE TEXT/NARRATIVE: The patient presents with right flank pain. This started on Thursday and by Thursday she had the rash. She is on acyclovir and tramadol for pain. The tramadol is not cutting it for pain. She went to the walk in clinic and they sent her up here. She has no fever, chills, cough, chest pain or shortness of breath. Onset: Gradual Duration: Day(s): Location: Reports: Abdomen, Back Quality: Reports: Sharp Severity: Severe Improves with: Reports: None Worsens with: Reports: None Associated Symptoms: Reports: No Other Symptoms Middle Back Pain Score (Numeric/FACES): 9 - Related Data Allergies Allergy/AdvReac Type Severity Reaction Status Date / Time iodine Allergy Hives Verified 03/01/21 16:43 Penicillins Allergy Swelling Verified 03/01/21 16:43 adhesive tape Allergy Blisters Uncoded 03/01/21 16:43 Bee sting Allergy Anaphylactic Uncoded 03/01/21 16:43 Shock Home Meds: Home Meds Prazosin [Minpress] 1 mg PO BEDTIME 06/09/18 [History] No122/Iron/Folic Acid [ Multi Tablet] 1 tab PO DAILY 06/09/18 [History] Sertraline [Zoloft] 250 mg PO BEDTIME 06/09/18 [History] Albuterol Sulfate [Albuterol Sulfate Hfa] 1 - 2 puff INH Q4H PRN 04/23/20 [History] QUEtiapine Fumarate [Seroquel] 250 mg PO BEDTIME 04/23/20 [History] buPROPion [Wellbutrin] 100 mg PO DAILY 04/23/20 [History] Ibuprofen [Motrin] 600 mg PO Q4H PRN tablet 04/24/20 [Rx] Albuterol [Proventil Neb Soln] 2.5 mg NEB ONETIME PRN neb 04/26/20 [Rx] oxyCODONE HCl/Acetaminophen [Percocet 5-325 mg Tablet] 1 - 2 each PO Q6HR PRN #20 tablet 03/01/21 [Rx] traMADol [Ultram] 150 mg PO DAILY 03/01/21 [History] valACYclovir [Valtrex] 1,000 mg PO TID 03/01/21 [History] Past Medical History HEENT History: Reports: Hard of Hearing, Impaired Vision, Other (See Below) Other HEENT History: Meniere's disease Cardiovascular History: Reports: None Respiratory History: Reports: Asthma Gastrointestinal History: Reports: None Other Gastrointestinal History: right lower abdominal pain Genitourinary History: Reports: Renal Calculus [employer] History: Reports: , Spontaneous Other [employer] History: h/o demise Musculoskeletal History: Reports: None Neurological History: Reports: Head Trauma, Migraines, Neuropathy, Peripheral, Vertigo Other Neuro History: Meneris disease Psychiatric History: Reports: Anxiety, Depression, PTSD Endocrine/Metabolic History: Reports: None Hematologic History: Reports: None Immunologic History: Reports: None Oncologic (Cancer) History: Reports: Cervix Dermatologic History: Reports: Other (See Below) Other Dermatologic History: shingles. - Infectious Disease History Infectious Disease History: Reports: Chicken Pox, Human Papilloma Virus (HPV), Influenza - Past Surgical History HEENT Surgical History: Reports: Oral Surgery GI Surgical History: Reports: Other (See Below) Other GI Surgeries/Procedures: superior mesenteric artery syndrome, lap jejunostomy Female Surgical History: Reports: Cystectomy, D&C, Hysterectomy Musculoskeletal Surgical History: Reports: Arthroscopic Knee, Other (See Below) Other Musculoskeletal Surgeries/Procedures:: foot surgery 2005. right knee surgery 2009 Oncologic Surgical History: Reports: Other (See Below) Other Oncologic Surgeries/Procedures: removed cancerous lesion from cervix. Social & Family History - Family History Family Medical History: No Pertinent Family History - Tobacco Use Tobacco Use Status *Q: Current Every Day Tobacco User Years of Tobacco use: 20 Packs/Tins Daily: 0.1 - Caffeine Use Caffeine Use: Reports: None - Recreational Drug Use Recreational Drug Use: No - Living Situation & Occupation Living situation: Reports: , with Significant Other, with Family Occupation: Employed ED ROS GENERAL - Review of Systems Review Of Systems: See Below Constitutional: Reports: No Symptoms HEENT: Reports: No Symptoms Respiratory: Reports: No Symptoms Cardiovascular: Reports: No Symptoms Endocrine: Reports: No Symptoms GI/Abdominal: Reports: Abdominal Pain : Reports: No Symptoms Musculoskeletal: Reports: Back Pain Skin: Reports: Rash ED EXAM, SKIN/RASH Exam: See Below Exam Limited By: No Limitations General Appearance: Alert, No Apparent Distress Ears: Normal External Exam Nose: Normal Inspection Head: Atraumatic, Normocephalic Neck: Normal Inspection Respiratory/Chest: No Respiratory Distress, Lungs Clear, Normal Breath Sounds Cardiovascular: Regular Rate, Rhythm, No Edema, No Murmur GI/Abdominal: Soft, No Organomegaly, No Mass, Other (Rash to the right lower abdomen) Back Exam: Other (Right flank rash) Extremities: Normal Inspection Course - Vital Signs Last Recorded V/S: Last Vital Signs Temp 97.6 F 03/01/21 16:40 Pulse 122 H 03/01/21 16:40 Resp 18 03/01/21 16:40 BP 118/91 H 03/01/21 16:40 Pulse Ox 97 03/01/21 16:40 - Orders/Labs/Meds Orders: Active Orders 24 hr Category Date Time Status HYDROmorphone [Dilaudid] Med 03/01/21 17:21 Once 1 mg IM ONETIME ONE Ketorolac [Toradol] Med 03/01/21 17:22 Once 60 mg IM ONETIME ONE Medication Orders Hydromorphone HCl (Hydromorphone 1 Mg/Ml Syringe) 1 mg IM ONETIME ONE Stop: 03/01/21 17:22 Ketorolac Tromethamine (Ketorolac 60 Mg/2 Ml Sdv) 60 mg IM ONETIME ONE Stop: 03/01/21 17:23 Meds: Medications Generic Name Dose Route Start Last Admin Trade Name Freq PRN Reason Stop Dose Admin Hydromorphone HCl 1 mg 03/01/21 17:21 Hydromorphone 1 Mg/Ml Syringe IM 03/01/21 17:22 ONETIME ONE Ketorolac Tromethamine 60 mg 03/01/21 17:22 Ketorolac 60 Mg/2 Ml Sdv IM 03/01/21 17:23 ONETIME ONE - Re-Assessments/Exams Free Text/Narrative Re-Assessment/Exam: 03/01/21 17:29 I have ordered dilaudid 1mg IM and toradol 60mg IM. Departure - Departure Time of Disposition: 17:30 Disposition: Home, Self-Care 01 Condition: Good Clinical Impression: Shingles Qualifiers: Herpes zoster complications: unspecified herpes zoster complication Qualified Code(s): B02.8 - Zoster with other complications - Discharge Information *PRESCRIPTION DRUG MONITORING PROGRAM REVIEWED*: Not Applicable *COPY OF PRESCRIPTION DRUG MONITORING REPORT IN PATIENT KRISTY: Not Applicable Prescriptions: oxyCODONE HCl/Acetaminophen [Percocet 5-325 mg Tablet] 1 - 2 each PO Q6HR PRN #20 tablet PRN Reason: Pain Referrals: PCP,None [Primary Care Provider] - Additional Instructions: Keep taking your acyclovir as prescribed. Stop taking the ultram and take the percocet as needed for pain. Please return if you are worse. Sepsis Event Note (ED) - Evaluation Sepsis Screening Result: No Definite Risk - Focused Exam Vital Signs: Vital Signs Temp Pulse Resp BP Pulse Ox 03/01/21 16:40 97.6 F 122 H 18 118/91 H 97 - My Orders Last 24 Hours: My Active Orders 03/01/21 17:21 HYDROmorphone [Dilaudid] 1 mg IM ONETIME ONE 03/01/21 17:22 Ketorolac [Toradol] 60 mg IM ONETIME ONE - Assessment/Plan Last 24 Hours: My Active Orders 03/01/21 17:21 HYDROmorphone [Dilaudid] 1 mg IM ONETIME ONE 03/01/21 17:22 Ketorolac [Toradol] 60 mg IM ONETIME ONE
== END 2021-03-01 18:00 | disposition home or self-care (01) ==
LOC: JD.ED 16:33
DX: B02.9 Zoster without complications (principal); J45.909 Unspecified asthma, uncomplicated; Z72.0 Tobacco use; Z88.8 Allergy status to other drugs, medicaments and biological substances; Z88.0 Allergy status to penicillin; Z91.048 Other nonmedicinal substance allergy status; Z91.030 Bee allergy status; Z79.899 Other long term (current) drug therapy
CPT/HCPCS: 96372; 99283; J1170; J1885

== ENCOUNTER 2021-07-15 11:37 | Emergency (ER) | payer BC, MEDICAID ==
[2021-07-15 11:56] VITALS: BP 105/70; PULSE 100
[2021-07-15] MEDS ORDERED: Sodium Chloride 0.9% 10 ML Syringe FLUSH PRN (12:07)
[2021-07-15] MEDS ORDERED: Alum Hydrox/Mag Hydrox/Simeth 30 ML, Lidocaine 2% 15 ML PO ONE ×2 (12:07)
--- NOTE | 2021-07-15 12:29 | EDM.PDOC ---
ED HPI GENERAL MEDICAL PROBLEM - General Chief Complaint: Chest Pain Stated Complaint: chest pain Time Seen by Provider: 07/15/21 11:42 Source of Information: Reports: Patient History Limitations: Reports: No Limitations - History of Present Illness INITIAL COMMENTS - FREE TEXT/NARRATIVE: 35-year-old female presents the emergency department today with complaints of sharp, stabbing chest pain that started last evening as she is getting ready for bed. She states she had food poisoning on Thursday after eating at [employer] and having a bunch of spicy wings. Patient states that last night for supper she ate the leftovers of the wings that gave her food poisoning. She states that woke with pain this morning and it feels like someone is turning a knife in her chest. She denies taking any [id number] medications to abort the discomfort. She denies any issues with reflux. She denies any previous cardiac issues. States she has been nauseated and did vomit twice this morning. Does admit to smoking a pack a day for the past 20 years. Chest Pain Score (Numeric/FACES): 10 - Related Data Allergies Allergy/AdvReac Type Severity Reaction Status Date / Time adhesive tape Allergy Blisters Verified 07/15/21 11:52 bee venom protein (honey bee) Allergy Anaphylactic Verified 07/15/21 11:52 Shock iodine Allergy Hives Verified 07/15/21 11:52 Penicillins Allergy Swelling Verified 07/15/21 11:52 Home Meds: Home Meds Prazosin [Minpress] 1 mg PO BEDTIME 06/09/18 [History] No122/Iron/Folic Acid [ Multi Tablet] 1 tab PO DAILY 06/09/18 [History] Sertraline [Zoloft] 250 mg PO BEDTIME 06/09/18 [History] Albuterol Sulfate [Albuterol Sulfate Hfa] 1 - 2 puff INH Q4H PRN 04/23/20 [History] QUEtiapine Fumarate [Seroquel] 250 mg PO BEDTIME 04/23/20 [History] buPROPion [Wellbutrin] 100 mg PO DAILY 04/23/20 [History] Ibuprofen [Motrin] 600 mg PO Q4H PRN tablet 04/24/20 [Rx] Albuterol [Proventil Neb Soln] 2.5 mg NEB ONETIME PRN neb 04/26/20 [Rx] oxyCODONE HCl/Acetaminophen [Percocet 5-325 mg Tablet] 1 - 2 each PO Q6HR PRN #20 tablet 03/01/21 [Rx] oxyCODONE HCl/Acetaminophen [Percocet 5-325 mg Tablet] 1 - 2 each PO Q6HR PRN #20 tablet 03/01/21 [Rx] traMADol [Ultram] 150 mg PO DAILY 03/01/21 [History] valACYclovir [Valtrex] 1,000 mg PO TID 03/01/21 [History] Past Medical History HEENT History: Reports: Hard of Hearing, Impaired Vision, Other (See Below) Other HEENT History: Meniere's disease Cardiovascular History: Reports: Other (See Below) Other Cardiovascular History: enlarged RBC's. Respiratory History: Reports: Asthma, Bronchitis, Recurrent, Pneumonia, Recurrent Gastrointestinal History: Reports: None Other Gastrointestinal History: right lower abdominal pain Genitourinary History: Reports: Renal Calculus [employer]CH[employer] History: Reports: , Spontaneous Other [employer] ARCHITECT History: h/o demise Musculoskeletal History: Reports: None Neurological History: Reports: Head Trauma, Migraines, Neuropathy, Peripheral, Vertigo, Other (See Below) Other Neuro History: Meniere's disease, states has short-term memory loss. Psychiatric History: Reports: Anxiety, Depression, PTSD Other Psychiatric History: insomnia Endocrine/Metabolic History: Reports: None Hematologic History: Reports: Other (See Below) Other Hematologic History: enlarged RBC's. Immunologic History: Reports: None Oncologic (Cancer) History: Reports: Cervix Dermatologic History: Reports: Other (See Below) Other Dermatologic History: shingles. - Infectious Disease History Infectious Disease History: Reports: Chicken Pox, Human Papilloma Virus (HPV), Influenza - Past Surgical History HEENT Surgical History: Reports: Oral Surgery GI Surgical History: Reports: Appendectomy, Other (See Below) Other GI Surgeries/Procedures: superior mesenteric artery syndrome, lap jejunostomy Female Surgical History: Reports: Cystectomy, D&C, Hysterectomy Musculoskeletal Surgical History: Reports: Arthroscopic Knee, Other (See Below) Other Musculoskeletal Surgeries/Procedures:: foot surgery 2005. right knee surgery 2009 Oncologic Surgical History: Reports: Other (See Below) Other Oncologic Surgeries/Procedures: removed cancerous lesion from cervix. Social & Family History - Family History Family Medical History: No Pertinent Family History - Tobacco Use Tobacco Use Status *Q: Current Every Day Tobacco User Years of Tobacco use: 25 Packs/Tins Daily: 0.1 - Caffeine Use Caffeine Use: Reports: None - Recreational Drug Use Recreational Drug Use: No - Living Situation & Occupation Living situation: Reports: , with Significant Other, with Family Occupation: Employed ED ROS GENERAL - Review of Systems Review Of Systems: Comprehensive ROS is negative, except as noted in HPI. ED EXAM, GENERAL - Physical Exam Exam: See Below Exam Limited By: No Limitations General Appearance: Alert, WD/WN, No Apparent Distress Ears: Normal External Exam, Hearing Grossly Normal Nose: Normal Inspection Throat/Mouth: Normal Inspection, Normal Lips, Normal Voice, No Airway Compromise Head: Atraumatic Neck: Normal Inspection, Supple Respiratory/Chest: No Respiratory Distress, Lungs Clear, Normal Breath Sounds, No Accessory Muscle Use, Chest Non-Tender Cardiovascular: Normal Peripheral Pulses, Regular Rate, Rhythm, No Edema, No Murmur Peripheral Pulses: 2+: Radial (L), Radial (R) GI/Abdominal: Normal Bowel Sounds, Soft, No Distention, Tender (Left upper quadrant/epigastric) (Female) Exam: Deferred Rectal (Female) Exam: Deferred Back Exam: Normal Inspection Extremities: Normal Inspection, Normal Range of Motion, Non-Tender, No Pedal Edema, Normal Capillary Refill Neurological: Alert, Oriented, Normal Cognition Psychiatric: Normal Affect, Normal Mood Skin Exam: Warm, Dry, Intact, Normal Color, No Rash Lymphatic: No Adenopathy #1 Interpretation EKG Date: 07/15/21 Time: 11:44 Rhythm: NSR Rate (Beats/Min): 106 [place]: Normal P-Wave: Present QRS: Normal ST-T: Normal QT: Normal EKG Interpretation Comments: Per Dr. High interpretation: Sinus tachycardia at 106 bpm; nonspecific T abnormalities, lateral leads Course - Vital Signs Text/Narrative:: As stated above patient presents with stabbing chest pain that started last evening after she was getting ready for bed. Physical exam appears healthy white female laying in bed in no apparent distress. Lung sounds are clear to auscultation heart rate is normal S1-S2 no murmurs appreciated. Patient does admit to worsening discomfort with palpation over her sternal and left chest area. Also has significant discomfort when palpating her epigastric area. Patient is hemodynamically stable at the time of exam. Will obtain lab studies to include a CBC, CMP, magnesium, C-reactive protein and a troponin level. We will also obtain an EKG and a portable chest x-ray. We will give the patient a GI cocktail to see if this supports the discomfort. Last Recorded V/S: Last Vital Signs Temp 97.0 F 07/15/21 11:45 Pulse 100 07/15/21 11:45 Resp 18 07/15/21 11:45 BP 105/70 07/15/21 11:45 Pulse Ox 97 07/15/21 11:45 - Orders/Labs/Meds Orders: Active Orders 24 hr Category Date Time Status Sodium Chloride 0.9% [Saline Flush] Med 07/15/21 12:07 Active 10 ml FLUSH ASDIRECTED PRN Saline Lock Insert [OM.PC] Stat Oth 07/15/21 12:07 Ordered Medication Orders Sodium Chloride (Sodium Chloride 0.9% 10 Ml Syringe) 10 ml FLUSH ASDIRECTED PRN PRN Reason: Keep Vein Open Last Admin: 07/15/21 12:47 Dose: 10 ml Documented by: HAY Labs: Laboratory Tests 07/15/21 07/15/21 Range/Units 12:22 12:22 WBC 7.44 (3.98-10.04) K/mm3 RBC 3.79 L (3.98-5.22) M/mm3 Hgb 13.0 (11.2-15.7) gm/dl Hct 40.2 (34.1-44.9) % MCV 106.1 H (79.4-94.8) fl MCH 34.3 H (25.6-32.2) pg MCHC 32.3 (32.2-35.5) g/dl RDW Std Deviation 46.2 (36.4-46.3) fL Plt Count 228 (182-369) K/mm3 MPV 9.1 L (9.4-12.3) fl Neut % (Auto) 88.5 H (34.0-71.1) % Lymph % (Auto) 4.3 L (19.3-51.7) % [place] % (Auto) 6.2 (4.7-12.5) % Eos % (Auto) 0.9 (0.7-5.8) Baso % (Auto) 0.0 L (0.1-1.2) % Neut # (Auto) 6.58 H (1.56-6.13) K/mm3 Lymph # (Auto) 0.32 L (1.18-3.74) K/mm3 [place] # (Auto) 0.46 H (0.24-0.36) K/mm3 Eos # (Auto) 0.07 (0.04-0.36) K/mm3 Baso # (Auto) 0.00 L (0.01-0.08) K/mm3 Sodium 136 (136-145) mEq/L Potassium 3.6 (3.5-5.1) mEq/L Chloride 100 (98-107) mEq/L Carbon Dioxide 26 (21-32) mEq/L Anion Gap 13.6 (5-15) BUN 26 H (7-18) mg/dL Creatinine 0.9 (0.55-1.02) mg/dL Est Cr Clr Drug Dosing 95.24 mL/min Estimated GFR (MDRD) > 60 (>60) mL/min BUN/Creatinine Ratio 28.9 H (14-18) Glucose 117 H (70-99) mg/dL Calcium 9.1 (8.5-10.1) mg/dL Total Bilirubin 0.9 (0.2-1.0) mg/dL AST 19 (15-37) U/L ALT 22 (14-59) U/L Alkaline Phosphatase 59 (46-116) U/L Troponin I < 0.017 (0.00-0.056) ng/mL C-Reactive Protein 13.8 H* (<1.0) mg/dL Total Protein 7.6 (6.4-8.2) g/dl Albumin 4.4 (3.4-5.0) g/dl Globulin 3.2 gm/dL Albumin/Globulin Ratio 1.4 (1-2) Meds: Medications Generic Name Dose Route Start Last Admin Trade Name Freq PRN Reason Stop Dose Admin Sodium Chloride 10 ml 07/15/21 12:07 07/15/21 12:47 Sodium Chloride 0.9% 10 Ml Syringe FLUSH 10 ml ASDIRECTED PRN Administration Keep Vein Open Discontinued Medications Generic Name Dose Route Start Last Admin Trade Name Freq PRN Reason Stop Dose Admin Al Hydroxide/Mg Hydroxide 30 0 ml 07/15/21 12:07 07/15/21 12:32 ml/ Lidocaine HCl 15 ml PO 07/15/21 12:08 45 ml ONETIME ONE Administration Pantoprazole Sodium 40 mg 07/15/21 13:08 Pantoprazole 40 Mg Vial IVPUSH 07/15/21 13:09 ONETIME ONE - Re-Assessments/Exams Free Text/Narrative Re-Assessment/Exam: 07/15/21 12:56 Radiologist impression frontal view of the chest: Heart size and mediastinum are normal. Lungs are clear with no acute parenchymal change. Bony structures show nothing acute. Impression: 1. Nothing acute is seen on frontal chest x-ray 07/15/21 13:11 Hematology reveals a WBC of 7.44, hemoglobin 13.0, hematocrit 40.2, platelet count 228 Chemistry reveals a sodium of 136, potassium 3.6, anion gap 13.6, BUN 26, creatinine 0.9, glucose 117, troponin less than 0.017, C-reactive protein 13.8 Patient reports the chest discomfort has completely resolved since receiving the GI cocktail. We will give her a dose of IV Protonix and then she will be discharged home. Departure - Departure Time of Disposition: 13:16 Disposition: Home, Self-Care 01 Condition: Good Clinical Impression: Esophagitis Instructions: Esophagitis Referrals: PCP,None [Primary Care Provider] - Forms: ED Department Discharge Additional Instructions: You were seen in the emergency department today with complaints of chest pain. Lab studies were essentially unremarkable. You did not have a heart attack. EKG and chest x-ray were unremarkable as well. You did receive medication while in the emergency department called a GI cocktail. This is a mixture of Maalox and lidocaine and this did seem to resolve your discomfort. The cause of your discomfort is likely esophagitis which is inflammation of your esophagus likely due to the spicy wings you had last evening. Recommend taking [id number] medication like Pepcid, Prilosec or Protonix once daily for the next 2 weeks. May take Tums or Maalox as needed. Should your condition worsen or change, do not hesitate return the emergency department. Sepsis Event Note (ED) - Evaluation Sepsis Screening Result: No Definite Risk - Focused Exam Vital Signs: Vital Signs Temp Pulse Resp BP Pulse Ox 07/15/21 11:45 97.0 F 100 18 105/70 97 - My Orders Last 24 Hours: My Active Orders 11/22/21 12:07 Sodium Chloride 0.9% [Saline Flush] 10 ml FLUSH ASDIRECTED PRN Saline Lock Insert [OM.PC] Stat - Assessment/Plan Last 24 Hours: My Active Orders 07/15/21 12:07 Sodium Chloride 0.9% [Saline Flush] 10 ml FLUSH ASDIRECTED PRN Saline Lock Insert [OM.PC] Stat
--- NOTE | 2021-07-15 12:42 | CR ---
Chest: Frontal view of the chest was obtained. Comparison: Prior chest x-ray of 05/06/14. Heart size and mediastinum are normal. Lungs are clear with no acute parenchymal change. Bony structures show nothing acute. Impression: 1. Nothing acute is seen on frontal chest x-ray. Diagnostic code #1
[2021-07-15] MEDS ORDERED: Pantoprazole 40 MG Vial IVPUSH ONE (13:08)
== END 2021-07-15 13:30 | disposition home or self-care (01) ==
LOC: JD.ED 11:37
DX: K20.90 Esophagitis, unspecified without bleeding (principal); Z91.048 Other nonmedicinal substance allergy status; Z91.030 Bee allergy status; Z88.0 Allergy status to penicillin; Z91.041 Radiographic dye allergy status; Z72.0 Tobacco use
CPT/HCPCS: 36415; 71045; 80053; 84484; 85025; 86140; 93005; 96374; 99285; A9270; C9113

== ENCOUNTER 2021-10-09 12:20 | Emergency (ER) | payer BC, MEDICAID ==
[2021-10-09 12:41] VITALS: PULSE 85
[2021-10-09] MEDS ORDERED: Ketorolac 30 MG/ML SDV IVPUSH ONE (12:55)
[2021-10-09] MEDS ORDERED: Sodium Chloride 0.9% 1,000 ML IV ONE (12:55)
[2021-10-09] MEDS ORDERED: Sodium Chloride 0.9% 10 ML Syringe FLUSH PRN (12:55)
[2021-10-09] MEDS ORDERED: Metoclopramide 10 MG/2 ML SDV IVPUSH ONE (12:56)
[2021-10-09] MEDS ORDERED: diphenhydrAMINE 50 MG/ML SDV IVPUSH ONE (12:56)
[2021-10-09] MEDS ORDERED: HYDROmorphone 1 MG/ML Syringe IVPUSH ONE (14:46)
[2021-10-09] MEDS ORDERED: Sodium Chloride 0.9% 10 ML Syringe FLUSH ONE (16:16)
[2021-10-09] MEDS ORDERED: Iopamidol 755 Mg/ML 100 ML Bottle IVPUSH ONE (16:16)
[2021-10-09] MEDS ORDERED: Sodium Chloride 0.9% 100 ML IV SCH (16:30)
[2021-10-09 18:27] VITALS: BP 109/85
== END 2021-10-09 18:27 | disposition home or self-care (01) ==
LOC: JD.ED 12:20
DX: G43.909 Migraine, unspecified, not intractable, without status migrainosus (principal); J45.909 Unspecified asthma, uncomplicated; Z88.0 Allergy status to penicillin; Z91.040 Latex allergy status; Z91.030 Bee allergy status; Z86.16 Personal history of COVID-19; Z91.041 Radiographic dye allergy status
CPT/HCPCS: 36415; 70450; 71045; 71275; 80053; 84484; 85025; 85379; 93005; 96374; 96375; 99284; J1170; J1200; J1885; J2765; J7030; Q9967

== ENCOUNTER 2021-10-15 18:16 | Emergency (ER) | payer BC ==
[2021-10-15 19:29] VITALS: BP 110/80; PULSE 120
== END 2021-10-15 20:17 | disposition left against medical advice (07) ==
LOC: JD.ED 18:16
DX: G43.909 Migraine, unspecified, not intractable, without status migrainosus (principal); Z53.21 Procedure and treatment not carried out due to patient leaving prior to being seen by health care provider

== ENCOUNTER 2021-12-19 15:07 | Emergency (ER) | payer BC ==
[2021-12-19 15:18] VITALS: BP 123/91; PULSE 100
[2021-12-19] MEDS ORDERED: Orphenadrine 100 MG Tab.ER PO ONE (16:35)
[2021-12-19] MEDS ORDERED: Ketorolac 30 MG/ML SDV IM ONE (18:07)
== END 2021-12-19 19:11 | disposition home or self-care (01) ==
LOC: JD.ED 15:07
DX: M62.838 Other muscle spasm (principal); Z72.0 Tobacco use
CPT/HCPCS: 96372; 99283; A9270; J1885

== ENCOUNTER 2022-01-16 19:22 | Emergency (ER) | payer BC ==
[2022-01-16 19:44] VITALS: BP 132/80; PULSE 108
[2022-01-16] MEDS ORDERED: Sodium Chloride 0.9% 500 ML IV ONE (20:49)
[2022-01-16] MEDS ORDERED: Ketorolac 15 MG/ML SDV IVPUSH ONE (20:49)
== END 2022-01-16 21:42 | disposition home or self-care (01) ==
LOC: JD.ED 19:22
DX: R55 Syncope and collapse (principal); Z91.030 Bee allergy status; Z88.0 Allergy status to penicillin; Z91.048 Other nonmedicinal substance allergy status; Z91.041 Radiographic dye allergy status; Z86.16 Personal history of COVID-19
CPT/HCPCS: 36415; 70450; 80053; 83605; 83735; 85025; 93005; 93225; 93226; 96374; 99284; J1885; J7030

== ENCOUNTER 2022-02-25 16:49 | Emergency (ER) | payer BC | END 2022-02-25 18:00 | disposition left against medical advice (07) | LOC: JD.ED 16:49 | DX: Z53.21 Procedure and treatment not carried out due to patient leaving prior to being seen by health care provider (principal) ==

== ENCOUNTER 2022-02-26 15:08 | Emergency (ER) | payer BC | END 2022-02-26 15:56 | disposition left against medical advice (07) | LOC: JD.ED 15:08 | DX: Z53.21 Procedure and treatment not carried out due to patient leaving prior to being seen by health care provider (principal) ==

== ENCOUNTER 2022-05-02 11:38 | Emergency (ER) | payer BC ==
[2022-05-02 11:56] VITALS: BP 128/93; PULSE 91
[2022-05-02] MEDS ORDERED: Sodium Chloride 0.9% 10 ML Syringe FLUSH PRN (12:10)
[2022-05-02] MEDS ORDERED: Ondansetron 4 MG/2 ML SDV IVPUSH ONE (12:11)
[2022-05-02 13:09] LABS: ESTIMATED GFR 116 mL/min (>60)
== END 2022-05-02 14:41 | disposition home or self-care (01) ==
LOC: JD.ED 11:38
DX: G40.A09 Absence epileptic syndrome, not intractable, without status epilepticus (principal); Z91.030 Bee allergy status; Z88.0 Allergy status to penicillin; Z91.048 Other nonmedicinal substance allergy status; Z91.041 Radiographic dye allergy status
CPT/HCPCS: 36415; 70450; 80053; 81003; 82550; 83605; 83735; 85025; 86140; 96374; 99284; J2405; J3490

== ENCOUNTER 2022-05-13 17:12 | Emergency (ER) | payer BC ==
[2022-05-13 19:28] VITALS: BP 113/67; PULSE 86
[2022-05-13] MEDS ORDERED: HYDROmorphone 1 MG/ML Syringe IM ONE (20:00)
[2022-05-13] MEDS ORDERED: Ondansetron 4 MG Tab.DIS PO ONE (20:01)
== END 2022-05-13 20:43 | disposition home or self-care (01) ==
LOC: JD.ED 17:12
DX: M79.621 Pain in right upper arm (principal); J45.909 Unspecified asthma, uncomplicated; Z91.030 Bee allergy status; Z88.0 Allergy status to penicillin; Z91.048 Other nonmedicinal substance allergy status; Z91.041 Radiographic dye allergy status; Z79.899 Other long term (current) drug therapy
CPT/HCPCS: 96372; 99283; A9270; J1170

== ENCOUNTER 2023-02-13 17:00 | Emergency (ER) | payer BC, MEDICAID ==
[2023-02-13] MEDS ORDERED: HYDROmorphone 1 MG/ML Syringe IM ONE (17:46)
[2023-02-13] MEDS ORDERED: Ketorolac 60 MG/2 ML SDV IM ONE (19:05)
[2023-02-13 20:20] VITALS: BP 140/91; PULSE 72
== END 2023-02-13 19:58 | disposition home or self-care (01) ==
LOC: JD.ED 17:00
DX: S90.01XA Contusion of right ankle, initial encounter (principal); J45.909 Unspecified asthma, uncomplicated; Z88.0 Allergy status to penicillin; Z91.030 Bee allergy status; Z91.041 Radiographic dye allergy status; Z91.048 Other nonmedicinal substance allergy status; W20.8XXA Other cause of strike by thrown, projected or falling object, initial encounter
CPT/HCPCS: 73610; 96372; 99283; J1170; J1885

== ENCOUNTER 2023-05-23 13:34 | Emergency (ER) | payer BC, MEDICAID ==
[2023-05-23] MEDS ORDERED: Sodium Chloride 0.9% 10 ML Syringe FLUSH PRN (13:51)
[2023-05-23] MEDS ORDERED: diphenhydrAMINE 50 MG/ML SDV IVPUSH ONE (13:51)
[2023-05-23] MEDS ORDERED: Famotidine 20 MG/2 ML SDV IVPUSH ONE (13:52)
[2023-05-23] MEDS ORDERED: methylPREDNISolone Sodium Succinate 125 MG/2 ML SDV IVPUSH ONE (13:52)
[2023-05-23 15:47] VITALS: BP 120/67; PULSE 113
== END 2023-05-23 15:20 | disposition home or self-care (01) ==
LOC: JD.ED 13:34
DX: T63.461A Toxic effect of venom of wasps, accidental (unintentional), initial encounter (principal); J45.909 Unspecified asthma, uncomplicated; Z87.891 Personal history of nicotine dependence; Z91.048 Other nonmedicinal substance allergy status; Z88.0 Allergy status to penicillin; Z91.030 Bee allergy status; Z88.8 Allergy status to other drugs, medicaments and biological substances; Z79.899 Other long term (current) drug therapy
CPT/HCPCS: 96374; 96375; 99283; J1200; J2930; J3490; 99282

== ENCOUNTER 2023-08-20 09:41 | Day surgery (SDC) | payer BC ==
[~2023-08-20 09:41] MED LIST changes: -Lidocaine 1%/Sod Bicarbonate in NS 8.4% 1 ML Syringe IDERM PRN; +Sodium Chloride 0.9% 10 ML Syringe FLUSH PRN; +Sodium Chloride 0.9% 10 ML Syringe FLUSH SCH
[2023-08-20 10:40] LABS: BARBITURATE SCREEN,URINE NEGATIVE (CUTOFF=200); BENZODIAZEPINES SCREEN,URINE NEGATIVE (CUTOFF=150); BUPRENORPHINE SCREEN,URINE NEGATIVE (CUTOFF=10); METHADONE SCREEN, URINE NEGATIVE (CUTOFF=200); METHAMPHETAMINES SCREEN, URINE NEGATIVE (CUTOFF=500); OXYCODONE SCREEN,URINE NEGATIVE (CUT0FF=100); THC SCREEN,URINE 20 NG/ML PRESUMPTIVE POSITIVE (CUTOFF=50)
[2023-08-20 10:52] LABS: AMPHETAMINES SCREEN, URINE NEGATIVE (CUTOFF=500)
[2023-08-20] MEDS ORDERED: Midazolam 1 MG/ML 2 ML SDV ONE (13:07)
[2023-08-20] MEDS ORDERED: Propofol 200 MG/20 ML SDV ONE ×4 (13:07→14:43)
[2023-08-20] MEDS ORDERED: Lidocaine 1% 4 ML ONE (13:07)
[2023-08-20] MEDS ORDERED: fentaNYL 100 MCG/2 ML SDV ONE (13:07)
[2023-08-20] MEDS ORDERED: Lactated Ringers 1,000 ML IV ONE (14:00)
[2023-08-20 16:32] VITALS: BP 113/79; PULSE 78
== END 2023-08-20 16:05 | disposition home or self-care (01) ==
LOC: JD.SDS 09:41
PROVIDERS: ATTEND Student in an Organized Health Care Education/Training Program
DX: K92.2 Gastrointestinal hemorrhage, unspecified (principal); F41.9 Anxiety disorder, unspecified; J45.909 Unspecified asthma, uncomplicated; F32.A Depression, unspecified; K66.1 Hemoperitoneum; G43.909 Migraine, unspecified, not intractable, without status migrainosus; F43.10 Post-traumatic stress disorder, unspecified; Z79.899 Other long term (current) drug therapy; Z79.51 Long term (current) use of inhaled steroids; Z88.0 Allergy status to penicillin
CPT/HCPCS: 43235; 45378; 80306; J2250; J2704; J3010; J7120; J3490

== ENCOUNTER 2023-12-01 11:57 | Emergency (ER) | payer BC ==
[2023-12-01] MEDS: Acetaminophen/oxyCODONE 325-5 MG Tab PO ONE (13:50)
[2023-12-01] MEDS ORDERED: Proparacaine 0.5% Ophth Soln 15 ML Bottle EYERT ONE (13:51)
[2023-12-01 14:08] VITALS: BP 106/80; PULSE 85
== END 2023-12-01 14:03 | disposition left against medical advice (07) ==
LOC: JD.ED 11:57
DX: S05.92XA Unspecified injury of left eye and orbit, initial encounter (principal); S40.021A Contusion of right upper arm, initial encounter; R51.9 Headache, unspecified; J45.909 Unspecified asthma, uncomplicated; Z88.0 Allergy status to penicillin; Z91.030 Bee allergy status; Z91.048 Other nonmedicinal substance allergy status; Z91.041 Radiographic dye allergy status; Z79.899 Other long term (current) drug therapy; Z90.49 Acquired absence of other specified parts of digestive tract; Z90.710 Acquired absence of both cervix and uterus; Z86.16 Personal history of COVID-19; W50.0XXA Accidental hit or strike by another person, initial encounter; Z53.29 Procedure and treatment not carried out because of patient's decision for other reasons
CPT/HCPCS: 70450; 70486; 99284; A9270; 99282

== ENCOUNTER 2025-08-01 16:26 | Emergency (ER) | payer BC ==
[2025-08-01 16:40] VITALS: BP 138/97; PULSE 92
[2025-08-01 17:24] LABS: BASOPHILS ABSOLUTE AUTO 0.0 K/mm3 (0.0-0.2); BASOPHILS PERCENT AUTO 0.3 % (0.0-1.0); EOSINOPHILS ABSOLUTE AUTO 0.1 K/mm3 (0.0-0.4); EOSINOPHILS PERCENT AUTO 1.3 % (0.0-6.0); IMMATURE GRAN ABSOLUTE AUTO 0.01 K/mm3 (0.00-0.05); IMMATURE GRAN PERCENT AUTO 0.2 % (0.0-0.4); LYMPHOCYTES ABSOLUTE AUTO 2.2 K/mm3 (1.0-4.8); LYMPHOCYTES PERCENT AUTO 35.3 % (24.0-44.0); MEAN PLATELET VOLUME 9.1 fl (9.4-12.3); MONOCYTES ABSOLUTE AUTO 0.4 K/mm3 (0.0-0.8); MONOCYTES PERCENT AUTO 6.7 % (0.0-8.0); NEUTROPHILS ABSOLUTE AUTO 3.4 K/mm3 (1.8-7.7); NEUTROPHILS PERCENT AUTO 56.2 % (41.0-71.0); NRBC ABSOLUTE 0.00 (0.00-0.02); NRBC PERCENT 0.0 % (0.0-0.2); PLATELET COUNT,PLT 263 K/mm3 (150-400); RED BLOOD CELL COUNT 3.83 M/mm3 (4.10-5.30); WHITE BLOOD CELL COUNT,WBC 6.12 K/mm3 (3.9-11.3)
[2025-08-01 17:50] LABS: A/G RATIO 1.5 (1-2); ALANINE AMINOTRANSFERASE,ALT 23.0 U/L (14-59); ASPARTATE AMNIOTRANSFERASE,AST 20.0 U/L (15-37); BILIRUBIN TOTAL 0.4 mg/dL (0.2-1.0); BLOOD UREA NITROGEN,BUN 16.0 mg/dL (7-18); CARBON DIOXIDE,CO2 28.0 mEq/L (21-32); CHLORIDE,CL 103.0 mEq/L (98-107); CREATININE 1.0 mg/dL (0.55-1.02); EST CRCL DRUG DOSING (CG) 62.65 mL/min; ESTIMATED GFR 74.0 mL/min (>60); GLUCOSE RANDOM 91.0 mg/dL (70-99); POTASSIUM,K 3.6 mEq/L (3.5-5.1); PROTEIN TOTAL,TP 8.2 g/dl (6.4-8.2); SODIUM,NA 141.0 mEq/L (136-145)
[2025-08-01] MEDS: Ondansetron 4 MG Tab.DIS PO ONE (18:24)
== END 2025-08-01 19:24 | disposition home or self-care (01) ==
LOC: JD.ED 16:26
DX: R51.9 Headache, unspecified (principal); M54.2 Cervicalgia; J45.909 Unspecified asthma, uncomplicated; Z88.0 Allergy status to penicillin; Z91.048 Other nonmedicinal substance allergy status; Z91.030 Bee allergy status; Z79.899 Other long term (current) drug therapy; Z79.51 Long term (current) use of inhaled steroids; Z86.16 Personal history of COVID-19; Z90.49 Acquired absence of other specified parts of digestive tract; Z90.89 Acquired absence of other organs
CPT/HCPCS: 36415; 70450; 72125; 80053; 83735; 85025; 99285; A9270